=== PATIENT | male | born 1960 | race Caucasian/White ===

== ENCOUNTER 2021-01-11 16:24 | Outpatient (RCR) | payer OTHER, SELFPAY ==
[2021-01-11] MEDS: COVID-19 VACC, MRNA(PFIZER)/PF 30 MCG/0.3 ML SYRINGE IM (13:12)
[2021-02-01] MEDS: COVID-19 VACC, MRNA(PFIZER)/PF 30 MCG/0.3 ML SYRINGE IM (12:55)
== END 2021-01-11 23:59 ==
LOC: IMMUN 16:24
PROVIDERS: PCP Internal Medicine; Visit Provider Family Medicine
DX: Z23 Encounter for immunization (principal)
CPT/HCPCS: 0001A; 0002A; 91300

== ENCOUNTER → 2022-04-23 | Outpatient (CLI) | payer OTHER, SELFPAY ==
--- NOTE | 2022-04-23 07:35 | RAD_ITS ---
STUDY: X-RAY - LEFT TIBIA AND FIBULA REASON FOR EXAM: Male, 61 years old. Left lower leg contusion. TECHNIQUE: 2 view(s) of the tibia and fibula were obtained. COMPARISON: None. FINDINGS: Normal visualized tibia. Normal visualized fibula. The soft tissue structures are unremarkable. RAD/Tibia & Fibula 2 Views IMPRESSION: Normal x-ray examination of the tibia and fibula. Electronically Signed: Paxton Lee MD at 10:55 EDT ,
== END | disposition home or self-care (01) ==
LOC: RAD 07:19
PROVIDERS: PCP Internal Medicine; Referring Provider Chiropractor; Visit Provider Chiropractor
DX: S80.12XA Contusion of left lower leg, initial encounter (principal)
CPT/HCPCS: 73590

== ENCOUNTER → 2022-08-21 | Outpatient (CLI) | payer OTHER, SELFPAY ==
--- NOTE | 2022-08-21 07:47 | RAD_ITS ---
HISTORY: KNEE PAIN. TECHNIQUE: XR Knee 1 or 2 Views. COMPARISON: None. FINDINGS: BONES : No acute fracture identified. Mineralization unremarkable. JOINTS: No dislocation. Mild degenerative change. Moderate joint effusion. RAD/Knee 4 or More Views IMPRESSION: Moderate joint effusion in the right knee without acute fracture or dislocation identified. Electronically Signed: Anastasiya Lyman MD at 8:29 EDT ,
== END | disposition home or self-care (01) ==
PROVIDERS: PCP Internal Medicine; Referring Provider Chiropractor; Visit Provider Chiropractor
DX: M25.561 Pain in right knee (principal)
CPT/HCPCS: 73564

== ENCOUNTER → 2025-08-12 | Outpatient (CLI) | payer OTHER, SELFPAY ==
--- OUTSIDE RECORDS SUMMARY | 2025-08-12 13:41 | XMS RPT_ITS | CCD ---
Author Organization [facility] Care Team Providers Care Food Cart Attendant Name Role Phone Dalia Tristan Unavailable Joel Chang Unavailable Luna Payton Unavailable Unavailable Karishma Anderson Unavailable Andreia Guy Unavailable Unavailable Monika Shah Unavailable Unavailable Unavailable Unavailable Ag Wheeler Referring Unavailable Dalia Tristan Primary Care Unavailable Ag Wheeler Attending Unavailable Dalia Tristan Primary Care Unavailable Ag Wheeler Attending Unavailable Ag Wheeler Referring Unavailable Medications Completed/Discontinued Medications Medication Drug Class(es) Dates Sig (Normalized) Sig (Original) amoxicillin 875 mg / clavulanate 125 mg oral tablet (6 sources) Penicillin-class Antibacterial Start: 07-04-2017 End: 08-12-2017 take 1 tablet by mouth twice daily Augmentin 875-125 MG Oral Tablet 1 Tablet bid for 14 days Quantity: 28 {Tablet} Refills: 0 Ordered: 12-Aug-2017 Karishma Anderson CNP Start : 12-Aug-2017 Active NEGATED: Highlighted row has not occurred!drug or medication (3 sources) No Known Historical Medications Problems Active Problems Problem Classification Problem Date Documented Da te Episodic/Chronic Cardiac dysrhythmias (12 sources) Other premature beats; Translations: [Cardiac dysrhythmia, unspecified] 08-12-2017 Chronic Comment on above: sinus arrhythmia Cardiac dysrhythmias (18 sources) Palpitations; Translations: [Palpitations] 08-12-2017 Episodic Coronary atherosclerosis and other heart disease (20 sources) Coronary atherosclerosis and other heart disease Other gastrointestinal disorders (9 sources) Splenomegaly; Translations: [Splenomegaly] 08-12-2017 Episodic Other non-traumatic joint disorders (1 source) Pain in right knee; Translations: [Pain in right knee] Onset: 08-27-2022 Episodic Other nutritional; endocrine; and metabolic disorders (6 sources) Body mass index 25-29 - overweight; Translations: [BMI 28.0-28.9,adult] Resolved: 08-12-2017 10-09-2018 Chronic Other upper respiratory disease (6 sources) Congestion of nasal sinus; Translations: [Sinus congestion] Resolved: 07-04-2017 07-04-2017 Episodic Other upper respiratory infections (3 sources) Bacterial sinusitis; Translations: [Sinusitis, bacterial] 08-12-2017 Chronic Other upper respiratory infections (12 sources) Acute sinusitis, unspecified; Translations: [Acute sinusitis] 08-12-2017 Episodic Residual codes; unclassified (6 sources) FH: Diabetes mellitus; Translations: [Family history of diabetes mellitus] 08-12-2017 Episodic Residual codes; unclassified (3 sources) History of appendectomy; Translations: [Appendectomy] 08-12-2017 Episodic Unclassified (9 sources) Encounter for screening for malignant neoplasm of colon (Renamed from Special screening for malignant neoplasms, colon); Translations: [Screening status] 08-12-2017 Unclassified (20 sources) Unclassified (12 sources) Screening status; Translations: [Encounter for screening for malignant neoplasm of prostate (Renamed from Screening for prostate cancer)] 08-12-2017 Unclassified (9 sources) History of clinical finding in subject; Translations: [History of hyperglycemia] 08-26-2019 Unclassified (15 sources) Non-smoker; Translations: [Nonsmoker] 08-12-2017 Unclassified (3 sources) Screening for prostate cancer Unclassified (3 sources) BMI 28.0-28.9,adult Unclassified (3 sources) Sinusitis, bacterial Past or Other Problems Problem Classification Problem Date Documented Da te Episodic/Chronic Headache; including migraine (3 sources) Headache; Translations: [Headache] Resolved: 07-04-2017 07-04-2017 Episodic Superficial injury; contusion (1 source) Contusion of left lower leg, initial encounter; Translations: [Contusion of left lower leg, initial encounter] Onset: 04-25-2022 Episodic Unclassified (6 sources) Unspecified Diagnosis 08-12-2017 Unclassified (6 sources) Patient encounter status; Translations: [Encounter for screening colonoscopy] 12-11-2017 Unclassified (3 sources) PVC, OTHER PREMATURE BEATS (427.69) Unclassified (3 sources) ARRHYTHMIA, NOS (427.9) Unclassified (3 sources) BMI 27.0-27.9,adult Results Test Name Value Interpretation Reference Range Facility Knee 4 or More Viewson 08-21 Knee 4 or More Views [facility] Imaging Services [address] [place] [address] Knee 4 or More Views MR#: [id number] Acct: [id number] Name: AG WHEELER Jr. Rep #: [id number] : 1960 M 62 From: Anastasiya ross MD PCP: Dr. Dalia Tristan DO Status: REG CLI Study: Knee 4 or More Views Date of Exam: 08/21/22 Exam# [id number] Ordering Dr: Ag Wheeler D.C. HISTORY: KNEE PAIN. TECHNIQUE: XR Knee 1 or 2 Views. COMPARISON: None. FINDINGS: BONES : No acute fracture identified. Mineralization unremarkable. JOINTS: No dislocation. Mild degenerative change. Moderate joint effusion. RAD/Knee 4 or More Views IMPRESSION: Moderate joint effusion in the right knee without acute fracture or dislocation identified. Electronically Signed: Anastasiya Lyman MD at 8:29 EDT Reading Location ID and State: [address] [place] [address] Tel , Service support , CC: GABRIELLA Wheeler; Dr. Dalia Tristan DO Linen Room Worker: Signed Normal [facility] Tibia Fibula 2 Viewson 04-23 Tibia Fibula 2 Views [facility] Imaging Services [address] [place] [address] Tibia Fibula 2 Views MR#: [id number] Acct: [id number] Name: AG WHEELER Jr. Rep #: [id number] : 1960 M 61 From: Paxton Lee MD PCP: Dr. Dalia Tristan DO Status: REG CLI Study: Tibia Fibula 2 Views Date of Exam: 04/23/22 Exam# [id number] Ordering Dr: Ag Wheeler D.C. STUDY: X-RAY - LEFT TIBIA AND FIBULA REASON FOR EXAM: Male, 61 years old. Left lower leg contusion. TECHNIQUE: 2 view(s) of the tibia and fibula were obtained. COMPARISON: None. FINDINGS: Normal visualized tibia. Normal visualized fibula. The soft tissue structures are unremarkable. RAD/Tibia Fibula 2 Views IMPRESSION: Normal x-ray examination of the tibia and fibula. Electronically Signed: Paxton Lee MD at 10:55 EDT , CC: DC Dr. Ag Wheeler; Dr. Dalia Tristan DO Linen Room Worker: Signed Normal [facility] CBC with auto diff ([id number])Or dered By: Cable Tender on 07-04-2017 Basophils (Bld) [#/Vol] 0.1 {x10E3/uL} Normal 0.0-0.2 [facility] Work Phone: Comment on above: PATIENT WAS FASTINGP ERFORMED BY: SocialOptimizr6370 [facility] [id number] Basophils/100 WBC (Bld) 1 % Normal [facility] Work Phone: Comment on above: PATIENT WAS FASTINGP ERFORMED BY: SocialOptimizr6370 [facility] [id number] Eosinophils (Bld) [#/Vol] 0.4 {x10E3/uL} Normal 0.0-0.4 [facility] Work Phone: Comment on above: PATIENT WAS FASTINGP ERFORMED BY: Xipin70 [facility] [id number] Eosinophils/100 WBC (Bld) 7 % Normal [facility] Work Phone: Comment on above: PATIENT WAS FASTINGP ERFORMED BY: [facility] Ezqbiq1422 [facility] [id number] Erythrocyte distribution width (RBC) [Ratio] 14.3 % Normal 12.3-15.4 [facility] Work Phone: Comment on above: PATIENT WAS FASTINGP ERFORMED BY: [facility]Asc[facility]6370 [facility] [id number] Hematocrit (Bld) [Volume fraction] 46.2 % Normal 37.5-51.0 [facility] Work Phone: Comment on above: PATIENT WAS FASTINGP ERFORMED BY: [place] 5195470 [facility] [id number] Hemoglobin (Bld) [Mass/Vol] 15.7 g/dL Normal 12.6-17.7 [facility] Work Phone: Comment on above: PATIENT WAS FASTINGP ERFORMED BY: [facility]6370 [facility] [id number] Immature granulocytes (Bld) [#/Vol] 0.0 {x10E3/uL} Normal 0.0-0.1 [facility] Work Phone: Comment on above: PATIENT WAS FASTINGP ERFORMED BY: [facility]6370 [facility] [id number] Immature granulocytes/100 WBC (Bld) 0 % Normal [facility] Work Phone: Comment on above: PATIENT WAS FASTINGP ERFORMED BY: LabAsc[facility] [facility] [id number] Lymphocytes (Bld) [#/Vol] 1.2 {x10E3/uL} Normal 0.7-3.1 [facility] Work Phone: Comment on above: PATIENT WAS FASTINGP ERFORMED BY: [facility]Asc[facility] [facility] [id number] Lymphocytes/100 WBC (Bld) 20 % Normal [facility] Work Phone: Comment on above: PATIENT WAS FASTINGP ERFORMED BY: DEBO LabCo Lhdtef3383 [address]rera RoadDublin [place] [id number] MCH (RBC) [Entitic mass] 28.8 pg Normal 26.6-33.0 [facility] Work Phone: Comment on above: PATIENT WAS FASTINGP ERFORMED BY: LabCoAcoma-Canoncito-Laguna HospitalStcmym2226 [address] Roadblin [place] [id number] MCHC (RBC) [Mass/Vol] 34.0 g/dL Normal 31.5-35.7 [facility] Work Phone: Comment on above: PATIENT WAS FASTINGP ERFORMED BY: Lab[facility] Wzrpee0446 [address] RoadDublin [place] [id number] MCV (RBC) [Entitic vol] 85 fL Normal 79-97 [facility] Work Phone: Comment on above: PATIENT WAS FASTINGP ERFORMED BY: Lab[facility] Gtnmpf7358 [address] Roadblin [place] [id number] Monocytes (Bld) [#/Vol] 0.6 {x10E3/uL} Normal 0.1-0.9 [facility] Work Phone: Comment on above: PATIENT WAS FASTINGP ERFORMED BY: [facility] Onhluc0396 [address] RoadDublin [place] [id number] Monocytes/100 WBC (Bld) 10 % Normal [facility] Work Phone: Comment on above: PATIENT WAS FASTINGP ERFORMED BY: Lab[facility] Ulaugr2963 [address] RoadDublin [place] [id number] Neutrophils (Bld) [#/Vol] 3.9 {x10E3/uL} Normal 1.4-7.0 [facility] Work Phone: Comment on above: PATIENT WAS FASTINGP ERFORMED BY: LabCo Crqbui1742 [address] RoadDublin [place] [id number] Neutrophils/100 WBC (Bld) 62 % Normal [facility] Work Phone: Comment on above: PATIENT WAS FASTINGP ERFORMED BY: DEBO LabCo Mklaiy2310 [address] Roadblin [place] [id number] Platelets (Bld) [#/Vol] 222 {x10E3/uL} Normal 150-379 [facility] Work Phone: Comment on above: PATIENT WAS FASTINGP ERFORMED BY: DEBO LabCo Ezcyfx[address] [facility] [place] [id number] RBC (Bld) [#/Vol] 5.45 {x10E6/uL} Normal 4.14-5.80 [facility] Work Phone: Comment on above: PATIENT WAS FASTINGP ERFORMED BY: DEBO LabIssa Bnqwww[address] [facility]in [place] [id number] WBC (Bld) [#/Vol] 6.2 {x10E3/uL} Normal 3.4-10.8 [facility] Work Phone: Comment on above: PATIENT WAS FASTINGP ERFORMED BY: DEBO LabTwo [facility] Jhnydo0665 [facility]in [place] [id number] HGB A1C ([id number])Ordered By: S ystem Study Director on 07-04-2017 HbA1c (Bld) [Mass fraction] 5.6 % Normal 4.8-5.6 [facility] Work Phone: Comment on above: . Pre-diabetes: 5.7 - 6.4 Diabetes: >6.4 Glycemic control for adults with diabetes: <7.0 PATIENT WAS FASTINGP ERFORMED BY: DEBO LabCo Nuthys1234 [facility] [id number] LIPID PANEL ([id number])Ordered B y: Cable Tender on 07-04-2017 Cholesterol [Mass/Vol] 188 mg/dL Normal 100-199 [facility] Work Phone: Comment on above: PATIENT WAS FASTINGP ERFORMED BY: DEBO LabCo Snkcwu[address] [facility] [place] [id number] Cholesterol in HDL [Mass/Vol] 74 mg/dL Normal [facility] Work Phone: Comment on above: PATIENT WAS FASTINGP ERFORMED BY: DEBO LabRenetta LynnYjdaff0692 [address] RoadDublin [place] [id number] Cholesterol in LDL [Mass/Vol] 96 mg/dL Normal 0-99 [facility] Work Phone: Comment on above: PATIENT WAS FASTINGP ERFORMED BY: DEBO LabRenetta LynnIvstsk1251 [address] RoadDublin [place] [id number] Cholesterol in LDL/Cholesterol in HDL [Mass ratio] 1.3 {ratio_units} Normal 0.0-3.6 [facility] Work Phone: Comment on above: LDL/HDL Ratio Men Wo men 1/2 Avg.Risk 1.0 1.5 Avg.Risk 3.6 3.2 2X Avg.Risk 6.2 5.0 3X Avg.Risk 8.0 6.1 PATIENT WAS FASTINGP ERFORMED BY: DEBO LabCoiam LynnNxsjok[address] [facility]in [place] [id number] Cholesterol in VLDL [Mass/Vol] 18 mg/dL Normal 5-40 [facility] Work Phone: Comment on above: PATIENT WAS FASTINGP ERFORMED BY: DEBO LabCoiam LynnCjdjxu5693 [address] Roadblin [place] [id number] Triglyceride [Mass/Vol] 89 mg/dL Normal 0-149 [facility] Work Phone: Comment on above: PATIENT WAS FASTINGP ERFORMED BY: DEBO LabRenetta LynnHdkksn[address] [facility] Hospitalbl[facility] [place] [id number] METABOLIC PANEL, COMPREHENSI VE ([id number])Ordered By: Cable Tender on 07-04-2017 Albumin [Mass/Vol] 4.0 g/dL Normal 3.5-5.5 [facility] Work Phone: Comment on above: PATIENT WAS FASTINGP ERFORMED BY: DEBO LabCoiam Wuqzus8246 [address] RoadDublin [place] [id number] Albumin/Globulin [Mass ratio] 1.6 {ratio} Normal 1.2-2.2 [facility] Work Phone: Comment on above: PATIENT WAS FASTINGP ERFORMED BY: DEBO [facility] Obzqyh5485 [address] RoadDublin [place] [id number] ALP [Catalytic activity/Vol] 80 [iU]/L Normal 39-117 [facility] Work Phone: Comment on above: PATIENT WAS FASTINGP ERFORMED BY: [facility] Boxnfd6036 [address] RoadDublin [place] [id number] ALT [Catalytic activity/Vol] 28 [iU]/L Normal 0-44 [facility] Work Phone: Comment on above: PATIENT WAS FASTINGP ERFORMED BY: LabCo Udzxbf0349 [address] RoadDublin [place] [id number] AST [Catalytic activity/Vol] 27 [iU]/L Normal 0-40 [facility] Work Phone: Comment on above: PATIENT WAS FASTINGP ERFORMED BY: [facility] Airrfa1637 [address] RoadDublin [place] [id number] Bilirubin [Mass/Vol] 1.6 mg/dL Abnormal 0.0-1.2 [facility] Work Phone: Comment on above: PATIENT WAS FASTINGP ERFORMED BY: LabCo Bzcgzd6020 [address] RoadDublin [place] [id number] Calcium [Mass/Vol] 9.4 mg/dL Normal 8.7-10.2 [facility] Work Phone: Comment on above: PATIENT WAS FASTINGP ERFORMED BY: [facility] Zzjnxa5312 [address] RoadDublin [place] [id number] Chloride [Moles/Vol] 103 mmol/L Normal 96-106 [facility] Work Phone: Comment on above: PATIENT WAS FASTINGP ERFORMED BY: [facility] Wouokv3643 [address] RoadDublin [place] [id number] CO2 [Moles/Vol] 25 mmol/L Normal 18-29 [facility] Work Phone: Comment on above: PATIENT WAS FASTINGP ERFORMED BY: [facility] Cmurnw7178 [address] RoadDublin [place] [id number] Creatinine [Mass/Vol] 1.09 mg/dL Normal 0.76-1.27 [facility] Work Phone: Comment on above: PATIENT WAS FASTINGP ERFORMED BY: [facility] Rvpozr1681 [address] RoadDublin [place] [id number] GFR/1.73 sq M predicted among blacks CKD-EPI (S/P/Bld) [Vol rate/Area] 88 mL/min/1.73 Normal [facility] Work Phone: Comment on above: PATIENT WAS FASTINGP ERFORMED BY: CB [facility] Yttjgn9262 [address] RoadDublin [place] [id number] GFR/1.73 sq M predicted among non-blacks CKD-EPI (S/P/Bld) [Vol rate/Area] 76 mL/min/1.73 Normal [facility] Work Phone: Comment on above: PATIENT WAS FASTINGP ERFORMED BY: [facility] Nrbhkr2539 [address] RoadDublin [place] [id number] Globulin (S) [Mass/Vol] 2.5 g/dL Normal 1.5-4.5 [facility] Work Phone: Comment on above: PATIENT WAS FASTINGP ERFORMED BY: [facility] Jpilbn4024 [address] RoadDublin [place] [id number] Glucose [Mass/Vol] 89 mg/dL Normal 65-99 [facility] Work Phone: Comment on above: PATIENT WAS FASTINGP ERFORMED BY: [facility] Dtvvlw[address] [facility]bl[facility] [place] [id number] Potassium [Moles/Vol] 5.1 mmol/L Normal 3.5-5.2 [facility] Work Phone: Comment on above: PATIENT WAS FASTINGP ERFORMED BY: [facility] Ehhyst9217 [address] RoadDublin [place] [id number] Protein [Mass/Vol] 6.5 g/dL Normal 6.0-8.5 [facility] Work Phone: Comment on above: PATIENT WAS FASTINGP ERFORMED BY: [facility] Igijsd5082 [address] RoadDublin [place] [id number] Sodium [Moles/Vol] 143 mmol/L Normal 134-144 [facility] Work Phone: Comment on above: PATIENT WAS FASTINGP ERFORMED BY: Posiba6370 [facility] [id number] Urea nitrogen [Mass/Vol] 11 mg/dL Normal 6-24 [facility] Work Phone: Comment on above: PATIENT WAS FASTINGP ERFORMED BY: Posiba[address] [employer] [facility]American [facility] [id number] Urea nitrogen/Creatini ne [Mass ratio] 10 mg/mg Normal 9-20 [facility] Work Phone: Comment on above: PATIENT WAS FASTINGP ERFORMED BY: [employer] I Ielmmd2255 HerreraTagLabsWatauga Medical Center [id number] PSA (PROSTATE SPECIFIC ANTIG EN) (V76.44)Ordered By: Cable Tender on 07-04-2017 Prostate specific Ag [Mass/Vol] 1.5 ng/mL Normal 0.0-4.0 [facility] Work Phone: Comment on above: [employer] ECLIA methodol ogy. .According to the [place] [employer], Serum PSA shoulddecrease and remain at undetectable levels after radicalprostatectomy. The AUA defines biochemical recurrence as an initialPSA value 0.2 ng/mL or greater followed by a subsequent confirmatoryPSA value 0.2 ng/mL or greater.Values obtained with different assay methods or kits cannot be usedinterchangeably. Results cannot be interpreted as absolute evidenceof the presence or absence of malignant disease. PATIENT WAS FASTINGP ERFORMED BY: Posiba[address] Klee Data SystemWatauga Medical Center [id number] TSH ([id number])Ordered By: Syste m Study Director on 07-04-2017 TSH Qn 2.820 {uIU/mL} Normal 0.450-4.500 [facility] Work Phone: Comment on above: PATIENT WAS FASTINGP ERFORMED BY: SocialOptimizr6370 BioArrayWatauga Medical Center [id number] CBC W/AUTO DIFF WBC ([id number])O rdered By: Cable Tender on 05-02-2016 Basophils (Bld) [#/Vol] 0.1 {x10E3/uL} Normal 0.0-0.2 [facility] Work Phone: Comment on above: PATIENT WAS FASTINGP ERFORMED BY: CandelariaJoshua V[place] 9600970 [facility] [id number] Information: [id number] Basophils/100 WBC (Bld) 1 % Normal [facility] Work Phone: Comment on above: PATIENT WAS FASTINGP ERFORMED BY: [address] [id number] Information: [id number] Eosinophils (Bld) [#/Vol] 0.3 {x10E3/uL} Normal 0.0-0.4 [facility] Work Phone: Comment on above: PATIENT WAS FASTINGP ERFORMED BY: [address] [id number] Information: [id number] Eosinophils/100 WBC (Bld) 4 % Normal [facility] Work Phone: Comment on above: PATIENT WAS FASTINGP ERFORMED BY: [address] [id number] Information: [id number] Erythrocyte distribution width (RBC) [Ratio] 14.3 % Normal 12.3-15.4 [facility] Work Phone: Comment on above: PATIENT WAS FASTINGP ERFORMED BY: [address] [id number] Information: [id number] Hematocrit (Bld) [Volume fraction] 46.7 % Normal 37.5-51.0 [facility] Work Phone: Comment on above: PATIENT WAS FASTINGP ERFORMED BY: [address] [id number] Information: [id number] Hemoglobin (Bld) [Mass/Vol] 15.7 g/dL Normal 12.6-17.7 [facility] Work Phone: Comment on above: PATIENT WAS FASTINGP ERFORMED BY: [place] 5195470 [facility] [id number] Information: [id number] Immature granulocytes (Bld) [#/Vol] 0.0 {x10E3/uL} Normal 0.0-0.1 [facility] Work Phone: Comment on above: PATIENT WAS FASTINGP ERFORMED BY: [address] [id number] Information: [id number] Immature granulocytes/100 WBC (Bld) 0 % Normal [facility] Work Phone: Comment on above: PATIENT WAS FASTINGP ERFORMED BY: [address] [id number] Information: [id number],[id number] Lymphocytes (Bld) [#/Vol] 1.1 {x10E3/uL} Normal 0.7-3.1 [facility] Work Phone: Comment on above: PATIENT WAS FASTINGP ERFORMED BY: [address] [id number] Information: [id number] Lymphocytes/100 WBC (Bld) 19 % Normal [facility] Work Phone: Comment on above: PATIENT WAS FASTINGP ERFORMED BY: [address] [id number] Information: [id number] MCH (RBC) [Entitic mass] 28.8 pg Normal 26.6-33.0 [facility] Work Phone: Comment on above: PATIENT WAS FASTINGP ERFORMED BY: [address] [id number] Information: [id number] MCHC (RBC) [Mass/Vol] 33.6 g/dL Normal 31.5-35.7 [facility] Work Phone: Comment on above: PATIENT WAS FASTINGP ERFORMED BY: DEBO CandelariaTwo [facility] Psychiatric Hospital Synnqz2698 [facility] [id number] Information: [id number] MCV (RBC) [Entitic vol] 86 fL Normal 79-97 [facility] Work Phone: Comment on above: PATIENT WAS FASTINGP ERFORMED BY: [address] [id number] Information: [id number] Monocytes (Bld) [#/Vol] 0.6 {x10E3/uL} Normal 0.1-0.9 [facility] Work Phone: Comment on above: PATIENT WAS FASTINGP ERFORMED BY: DEBO [address] [id number] Information: [id number] Monocytes/100 WBC (Bld) 10 % Normal [facility] Work Phone: Comment on above: PATIENT WAS FASTINGP ERFORMED BY: [facility] Ypkghb6374 [facility] [id number] Information: [id number] Neutrophils (Bld) [#/Vol] 4.0 {x10E3/uL} Normal 1.4-7.0 [facility] Work Phone: Comment on above: PATIENT WAS FASTINGP ERFORMED BY: [place] 5195470 [facility] [id number] Information: [id number],[id number] Neutrophils/100 WBC (Bld) 66 % Normal [facility] Work Phone: Comment on above: PATIENT WAS FASTINGP ERFORMED BY: [facility]6370 [facility] [id number] Information: [id number] Platelets (Bld) [#/Vol] 208 {x10E3/uL} Normal 150-379 [facility] Work Phone: Comment on above: PATIENT WAS FASTINGP ERFORMED BY: DEBO Chely Bhakta6370 [facility] [id number] Information: [id number] RBC (Bld) [#/Vol] 5.46 {x10E6/uL} Normal 4.14-5.80 [facility] Internal Medicine Work Phone: Comment on above: PATIENT WAS FASTINGP ERFORMED BY: DEBO Chely Bhakta6370 [facility] [id number] Information: [id number] WBC (Bld) [#/Vol] 6.0 {x10E3/uL} Normal 3.4-10.8 [facility] Internal [facility] Work Phone: Comment on above: PATIENT WAS FASTINGP ERFORMED BY: DEBO Katieiam Prjzat6803 [facility] [id number] Information: [id number] HGB A1C (94067)on 05-02-2016 HbA1c (Bld) [Mass fraction] 5.6 % Normal 4.6 - 7.1 [facility] Work Phone: LIPID PANEL (32853)Ordered B y: Cable Tender on 05-02-2016 Cholesterol [Mass/Vol] 170 mg/dL Normal 100-199 [facility] Work Phone: Comment on above: PATIENT WAS FASTINGP ERFORMED BY: DEBO Katieiam LynnLrpkit4460 [facility] [id number] Cholesterol in HDL [Mass/Vol] 68 mg/dL Normal [facility] Work Phone: Comment on above: According to ATP-III Guidelines, HDL-C >59 mg/dL is considered anegative risk factor for CHD. PATIENT WAS FASTINGP ERFORMED BY: DEBO LabCoiam LynnBxosmf4596 [facility] [id number] Cholesterol in LDL [Mass/Vol] 88 mg/dL Normal 0-99 [facility] Work Phone: Comment on above: PATIENT WAS FASTINGP ERFORMED BY: DEBO LabCo Ahsvbq6553 [facility] [id number] Cholesterol in LDL/Cholesterol in HDL [Mass ratio] 1.3 {ratio_units} Normal 0.0-3.6 [facility] Work Phone: Comment on above: LDL/HDL Ratio Men Wo men 1/2 Avg.Risk 1.0 1.5 Avg.Risk 3.6 3.2 2X Avg.Risk 6.2 5.0 3X Avg.Risk 8.0 6.1 PATIENT WAS FASTINGP ERFORMED BY: DEBO LabCo Cidgnd1022 [facility] [id number] Cholesterol in VLDL [Mass/Vol] 14 mg/dL Normal 5-40 [facility] Work Phone: Comment on above: PATIENT WAS FASTINGP ERFORMED BY: DEBO LabCoMatheny Medical and Educational CenterCdjzqq6899 [facility] [id number] Triglyceride [Mass/Vol] 70 mg/dL Normal 0-149 [facility] Work Phone: Comment on above: PATIENT WAS FASTINGP ERFORMED BY: DEBO LabCo Daapjg7291 [facility] [id number] METABOLIC PANEL, COMPREHENSI VE ([id number])Ordered By: Cable Tender on 05-02-2016 Albumin [Mass/Vol] 4.3 g/dL Normal 3.5-5.5 [facility] Work Phone: Comment on above: PATIENT WAS FASTINGP ERFORMED BY: LabCo Wluqwl4219 [facility] [id number] Albumin/Globulin [Mass ratio] 2.0 {ratio} Normal 1.1-2.5 [facility] Work Phone: Comment on above: PATIENT WAS FASTINGP ERFORMED BY: [facility] Jejwlb7656 [facility] [id number] ALP [Catalytic activity/Vol] 79 [iU]/L Normal 39-117 [facility] Work Phone: Comment on above: PATIENT WAS FASTINGP ERFORMED BY: LabCo Zpqyre2207 [facility] [id number] ALT [Catalytic activity/Vol] 25 [iU]/L Normal 0-44 [facility] Work Phone: Comment on above: PATIENT WAS FASTINGP ERFORMED BY: [facility] Vacymk[address] [facility] [place] [id number] AST [Catalytic activity/Vol] 24 [iU]/L Normal 0-40 [facility] Work Phone: Comment on above: PATIENT WAS FASTINGP ERFORMED BY: [facility] Nkpxls1317 [address] RoadAmerican Healthcare Systemsin [place] [id number] Bilirubin [Mass/Vol] 2.4 mg/dL Abnormal 0.0-1.2 [facility] Work Phone: Comment on above: PATIENT WAS FASTINGP ERFORMED BY: [facility]Asc[facility] [facility]in [place] [id number] Calcium [Mass/Vol] 9.2 mg/dL Normal 8.7-10.2 [facility] Work Phone: Comment on above: PATIENT WAS FASTINGP ERFORMED BY: [facility] [facility] [id number] Chloride [Moles/Vol] 100 mmol/L Normal 97-108 [facility] Work Phone: Comment on above: PATIENT WAS FASTINGP ERFORMED BY: [facility]Asc[facility] [facility]in [place] [id number] CO2 [Moles/Vol] 25 mmol/L Normal 18-29 [facility] Work Phone: Comment on above: PATIENT WAS FASTINGP ERFORMED BY: [facility]Asc[facility] [facility]in [place] [id number] Creatinine [Mass/Vol] 1.13 mg/dL Normal 0.76-1.27 [facility] Work Phone: Comment on above: PATIENT WAS FASTINGP ERFORMED BY: [facility] Trljgw4849 [address] [facility]in [place] [id number] GFR/1.73 sq M predicted among blacks CKD-EPI (S/P/Bld) [Vol rate/Area] 85 mL/min/1.73 Normal [facility] Work Phone: Comment on above: PATIENT WAS FASTINGP ERFORMED BY: DEBO [facility] Pacmre4449 [address] RoadDublin [place] [id number] GFR/1.73 sq M predicted among non-blacks CKD-EPI (S/P/Bld) [Vol rate/Area] 74 mL/min/1.73 Normal [facility] Work Phone: Comment on above: PATIENT WAS FASTINGP ERFORMED BY: DEBO [facility] Qsxfcd2913 [address] RoadDublin [place] [id number] Globulin (S) [Mass/Vol] 2.1 g/dL Normal 1.5-4.5 [facility] Work Phone: Comment on above: PATIENT WAS FASTINGP ERFORMED BY: DEBO [facility] Aimlux8963 [address] RoadDublin [place] [id number] Glucose [Mass/Vol] 87 mg/dL Normal 65-99 [facility] Work Phone: Comment on above: PATIENT WAS FASTINGP ERFORMED BY: LabCo Cstnrq7702 [address] RoadDublin [place] [id number] Potassium [Moles/Vol] 4.9 mmol/L Normal 3.5-5.2 [facility] Work Phone: Comment on above: PATIENT WAS FASTINGP ERFORMED BY: [facility] Upfzsl7558 [address] RoadDublin [place] [id number] Protein [Mass/Vol] 6.4 g/dL Normal 6.0-8.5 [facility] Work Phone: Comment on above: PATIENT WAS FASTINGP ERFORMED BY: [facility] Iyggas3461 [address] RoadDublin [place] [id number] Sodium [Moles/Vol] 141 mmol/L Normal 134-144 [facility] Work Phone: Comment on above: PATIENT WAS FASTINGP ERFORMED BY: [facility] Wkkidn0439 [address] RoadDublin [place] [id number] Urea nitrogen [Mass/Vol] 11 mg/dL Normal 6-24 [facility] Work Phone: Comment on above: PATIENT WAS FASTINGP ERFORMED BY: Pos[facility]6370 [employer]in [place] [id number] Urea nitrogen/Creatini ne [Mass ratio] 10 mg/mg Normal 9-20 [facility] Work Phone: Comment on above: PATIENT WAS FASTINGP ERFORMED BY: Posiba6370 HerreraTagLabsAmerican Healthcare Systemsin [place] [id number] PSA (PROSTATE SPECIFIC ANTIG EN) (V76.44)Ordered By: Cable Tender on 05-02-2016 Prostate specific Ag [Mass/Vol] 1.3 ng/mL Normal 0.0-4.0 [facility] Work Phone: Comment on above: [employer] ECLIA methodol ogy. .According to the [place] [employer], Serum PSA shoulddecrease and remain at undetectable levels after radicalprostatectomy. The AUA defines biochemical recurrence as an initialPSA value 0.2 ng/mL or greater followed by a subsequent confirmatoryPSA value 0.2 ng/mL or greater.Values obtained with different assay methods or kits cannot be usedinterchangeably. Results cannot be interpreted as absolute evidenceof the presence or absence of malignant disease. PATIENT WAS FASTINGP ERFORMED BY: Posiba6370 [facility] InsightsAmerican Healthcare Systems [id number] TSH ([id number])Ordered By: cafegive m Study Director on 05-02-2016 TSH Qn 2.610 {uIU/mL} Normal 0.450-4.500 [facility] Internal Medicine Work Phone: Comment on above: PATIENT WAS FASTINGP ERFORMED BY: SocialOptimizr[address] [facility]lee Data SystemWatauga Medical Center [id number] CBC WITH MANUAL DIFF ([id number]) Ordered By: Cable Tender on 07-29-2012 Basophils (Bld) [#/Vol] 0.0 {x10E3/uL} Normal 0.0-0.2 [facility] Internal Medicine Work Phone: Comment on above: PATIENT NOT FASTINGP ERFORMED BY: SocialOpt[employer]r[address] Klee Data SystemWatauga Medical Center [id number] Basophils/100 WBC (Bld) 1 % Normal 0-3 [facility] Work Phone: Comment on above: PATIENT NOT FASTINGP ERFORMED BY: CB [facility] Mzsfrf1077 [address] RoadDublin [place] [id number] Eosinophils (Bld) [#/Vol] 0.2 {x10E3/uL} Normal 0.0-0.4 [facility] Work Phone: Comment on above: PATIENT NOT FASTINGP ERFORMED BY: CB [facility] Btxkzm7787 [address] RoadDublin [place] [id number] Eosinophils/100 WBC (Bld) 3 % Normal 0-7 [facility] Work Phone: Comment on above: PATIENT NOT FASTINGP ERFORMED BY: CB [facility] Ddujvx4298 [address] RoadDublin [place] [id number] Erythrocyte distribution width (RBC) [Ratio] 14.2 % Normal 12.3-15.4 [facility] Work Phone: Comment on above: PATIENT NOT FASTINGP ERFORMED BY: CB [facility] Acqvkr9587 [address] RoadDublin [place] [id number] Hematocrit (Bld) [Volume fraction] 44.3 % Normal 37.5-51.0 [facility] Work Phone: Comment on above: PATIENT NOT FASTINGP ERFORMED BY: CB [facility] Pqmqer6050 [address] RoadDublin [place] [id number] Hemoglobin (Bld) [Mass/Vol] 15.5 g/dL Normal 12.6-17.7 [facility] Work Phone: Comment on above: PATIENT NOT FASTINGP ERFORMED BY: CB [facility] Qtmrcc1276 [address] RoadDublin [place] [id number] Immature granulocytes (Bld) [#/Vol] 0.0 {x10E3/uL} Normal 0.0-0.1 [facility] Work Phone: Comment on above: PATIENT NOT FASTINGP ERFORMED BY: CB [facility] Cisjjm9089 [address] RoadDublin [place] [id number] Immature granulocytes/100 WBC (Bld) 0 % Normal 0-2 [facility] Work Phone: Comment on above: PATIENT NOT FASTINGP ERFORMED BY: CB [facility] Xafldi6421 [address] RoadDublin [place] [id number] Lymphocytes (Bld) [#/Vol] 1.1 {x10E3/uL} Normal 0.7-4.5 [facility] Work Phone: Comment on above: PATIENT NOT FASTINGP ERFORMED BY: CB [facility] Yxfeff8064 [address] RoadDublin [place] [id number] Lymphocytes/100 WBC (Bld) 16 % Normal 14-46 [facility] Work Phone: Comment on above: PATIENT NOT FASTINGP ERFORMED BY: CB [facility] Xyunqg9371 [address] RoadAmerican Healthcare Systemsin [place] [id number] MCH (RBC) [Entitic mass] 29.5 pg Normal 26.6-33.0 [facility] Work Phone: Comment on above: PATIENT NOT FASTINGP ERFORMED BY: CB [facility] Riohxg6847 [address] RoadAmerican Healthcare Systemsin [place] [id number] MCHC (RBC) [Mass/Vol] 35.0 g/dL Normal 31.5-35.7 [facility] Work Phone: Comment on above: PATIENT NOT FASTINGP ERFORMED BY: CB [facility] Melivq9[address] [facility] HospitalDublin [place] [id number] MCV (RBC) [Entitic vol] 84 fL Normal 79-97 [facility] Work Phone: Comment on above: PATIENT NOT FASTINGP ERFORMED BY: CB [facility] Ijefel1530 [address] RoadAmerican Healthcare Systemsin [place] [id number] Monocytes (Bld) [#/Vol] 0.5 {x10E3/uL} Normal 0.1-1.0 [facility] Work Phone: Comment on above: PATIENT NOT FASTINGP ERFORMED BY: CB [facility] Ormckp0301 [address] RoadDublin [place] [id number] Monocytes/100 WBC (Bld) 8 % Normal 4-13 [facility] Work Phone: Comment on above: PATIENT NOT FASTINGP ERFORMED BY: CB [facility] Rmpvdx8816 [address] RoadDublin [place] [id number] Neutrophils (Bld) [#/Vol] 4.7 {x10E3/uL} Normal 1.8-7.8 [facility] Work Phone: Comment on above: PATIENT NOT FASTINGP ERFORMED BY: CB [facility] Ohpmlm4886 [address] RoadDublin [place] [id number] Neutrophils/100 WBC (Bld) 72 % Normal 40-74 [facility] Work Phone: Comment on above: PATIENT NOT FASTINGP ERFORMED BY: CB [facility] Asgiqx2616 [address] RoadDublin [place] [id number] Platelets (Bld) [#/Vol] 237 {x10E3/uL} Normal 140-415 [facility] Work Phone: Comment on above: PATIENT NOT FASTINGP ERFORMED BY: CB [facility] Ukrlim9980 [address] RoadDublin [place] [id number] RBC (Bld) [#/Vol] 5.25 {x10E6/uL} Normal 4.14-5.80 [facility] Internal Medicine Work Phone: Comment on above: PATIENT NOT FASTINGP ERFORMED BY: CB [facility] Cgcjtx9958 [address] RoadDublin [place] [id number] WBC (Bld) [#/Vol] 6.6 {x10E3/uL} Normal 4.0-10.5 [facility] Internal Medicine Work Phone: Comment on above: PATIENT NOT FASTINGP ERFORMED BY: CB [facility] Goozet3933 [address] RoadDublin [place] [id number] METABOLIC PANEL, COMPREHENSI VE ([id number])Ordered By: Cable Tender on 07-29-2012 Albumin [Mass/Vol] 4.5 g/dL Normal 3.5-5.5 [facility] Internal Medicine Work Phone: Comment on above: PATIENT NOT FASTINGP ERFORMED BY: CB [facility] Wdvewv2399 [address] RoadDublin [place] [id number] Albumin/Globulin [Mass ratio] 2.1 {ratio} Normal 1.1-2.5 [facility] Work Phone: Comment on above: PATIENT NOT FASTINGP ERFORMED BY: CB [facility] Ncyywt5626 [address] RoadDublin [place] [id number] ALP [Catalytic activity/Vol] 79 [iU]/L Normal 25-150 [facility] Work Phone: Comment on above: PATIENT NOT FASTINGP ERFORMED BY: CB [facility] Bjuqqd5079 [address] RoadDublin [place] [id number] ALT [Catalytic activity/Vol] 23 [iU]/L Normal 0-55 [facility] Work Phone: Comment on above: PATIENT NOT FASTINGP ERFORMED BY: CB [facility] Vedhud9651 [address] RoadDublin [place] [id number] AST [Catalytic activity/Vol] 23 [iU]/L Normal 0-40 [facility] Work Phone: Comment on above: PATIENT NOT FASTINGP ERFORMED BY: CB [facility] Fyidhz1566 [address] RoadDublin [place] [id number] Bilirubin [Mass/Vol] 1.5 mg/dL Abnormal 0.0-1.2 [facility] Work Phone: Comment on above: PATIENT NOT FASTINGP ERFORMED BY: CB [facility] Vdoazw8373 [address] RoadDublin [place] [id number] Calcium [Mass/Vol] 9.5 mg/dL Normal 8.7-10.2 [facility] Work Phone: Comment on above: PATIENT NOT FASTINGP ERFORMED BY: CB [facility] Wisuhl9523 [address] RoadDublin [place] [id number] Chloride [Moles/Vol] 100 mmol/L Normal 97-108 [facility] Work Phone: Comment on above: PATIENT NOT FASTINGP ERFORMED BY: CB [facility] Uctnch4091 [address] RoadDublin [place] [id number] CO2 [Moles/Vol] 24 mmol/L Normal 20-32 [facility] Internal Medicine Work Phone: Comment on above: PATIENT NOT FASTINGP ERFORMED BY: CB [facility] Umllcy1286 [address] RoadDublin [place] [id number] Creatinine [Mass/Vol] 1.11 mg/dL Normal 0.76-1.27 [facility] Work Phone: Comment on above: PATIENT NOT FASTINGP ERFORMED BY: CB [facility] Vtfepl2026 [address] RoadDublin [place] [id number] GFR/1.73 sq M predicted among blacks CKD-EPI (S/P/Bld) [Vol rate/Area] 89 mL/min/1.73 Normal [facility] Work Phone: Comment on above: PATIENT NOT FASTINGP ERFORMED BY: CB [facility] Iorvch7373 [address] RoadDublin [place] [id number] GFR/1.73 sq M predicted among non-blacks CKD-EPI (S/P/Bld) [Vol rate/Area] 77 mL/min/1.73 Normal [facility] Work Phone: Comment on above: PATIENT NOT FASTINGP ERFORMED BY: CB [facility] Uzedwy6351 [address] RoadDublin [place] [id number] Globulin (S) [Mass/Vol] 2.1 g/dL Normal 1.5-4.5 [facility] Work Phone: Comment on above: PATIENT NOT FASTINGP ERFORMED BY: CB [facility] Ojfhwn7690 [address] RoadDublin [place] [id number] Glucose [Mass/Vol] 85 mg/dL Normal 65-99 [facility] Work Phone: Comment on above: PATIENT NOT FASTINGP ERFORMED BY: CB [facility] Smczmz1719 [address] RoadDublin [place] [id number] Potassium [Moles/Vol] 4.3 mmol/L Normal 3.5-5.2 [facility] Work Phone: Comment on above: PATIENT NOT FASTINGP ERFORMED BY: CB [facility] Fvgfky0232 [address] RoadDublin [place] [id number] Protein [Mass/Vol] 6.6 g/dL Normal 6.0-8.5 [facility] Work Phone: Comment on above: PATIENT NOT FASTINGP ERFORMED BY: CB [facility] Atmpwg55[address] [facility] HospitalDublin [place] [id number] Sodium [Moles/Vol] 139 mmol/L Normal 134-144 [facility] Work Phone: Comment on above: PATIENT NOT FASTINGP ERFORMED BY: CB [facility] Iipmii57[address] [facility]in [place] [id number] Urea nitrogen [Mass/Vol] 16 mg/dL Normal 6-24 [facility] Work Phone: Comment on above: PATIENT NOT FASTINGP ERFORMED BY: CB [facility] Tmeqdt6165 [address] RoadDublin [place] [id number] Urea nitrogen/Creatini ne [Mass ratio] 14 mg/mg Normal 9-20 [facility] Work Phone: Comment on above: PATIENT NOT FASTINGP ERFORMED BY: CB [facility] Tgzikx4579 [address] [facility] [id number] TSH ([id number])Ordered By: Nicole m Study Director on 07-29-2012 TSH Qn 1.670 {uIU/mL} Normal 0.450-4.500 [facility] Internal Medicine Work Phone: Comment on above: PATIENT NOT FASTINGP ERFORMED BY: CB [facility] Bqraed3535 [address] [facility] [id number] Vital Signs Date Time Vital Sign Value Performing Clinician Facility 08-12-2017 13:0400 BMI (Body Mass Index) 27.29 kg/m2 Dalia Tristan [facility] Internal Medicine Work Phone: 08-12-2017 13:130400 Body Temperature 98.2 [degF] Dalia Tristan [facility] Work Phone: Comment on above: Method: Temporal 08-12-2017 13:13040 Body weight 81.42 kg Dalia Tristan [facility] Internal Medicine Work Phone: 08-12-2017 13:13-0400 BP Diastolic 70 mm[Hg] Dalia Tristan [facility] Internal Medicine Work Phone: Comment on above: Patient Position: Sitting; Cuff Location : Left Arm; Cuff Size: Standard 08-12-2017 13:13-0400 BP Systolic 127 mm[Hg] Dalia Tristan [facility] Internal Medicine Work Phone: Comment on above: Patient Position: Sitting; Cuff Location : Left Arm; Cuff Size: Standard 08-12-2017 13:13-0400 BSA (Body Surface Area) 1.95 m2 Dalia Tristan [facility] Internal Medicine Work Phone: 08-12-2017 13:13-0400 Height 172.72 cm Dalia Tristan [facility] Internal Medicine Work Phone: 08-12-2017 13:13-0400 Pulse (Heart Rate) 72 /min Dalia Tristan [facility] Internal Medicine Work Phone: Comment on above: Pattern: Regular 08-12-2017 13:13-0400 Respiratory Rate 16 /min Dalia Tristan [facility] Internal Medicine Work Phone: Comment on above: Pattern: Unlabored 07-04-2017 07:46-0400 BMI (Body Mass Index) 27.29 kg/m2 Dalia Tristan [facility] Internal Medicine Work Phone: 07-04-2017 07:46-0400 Body weight 81.42 kg Dalia Tristan [facility] Internal Medicine Work Phone: 07-04-2017 07:46-0400 BP Diastolic 84 mm[Hg] Dalia Tristan [facility] Internal Medicine Work Phone: Comment on above: Patient Position: Sitting; Cuff Location : Left Arm; Cuff Size: Large 07-04-2017 07:46-0400 BP Systolic 122 mm[Hg] Dalia Tristan [facility] Internal Medicine Work Phone: Comment on above: Patient Position: Sitting; Cuff Location : Left Arm; Cuff Size: Large 07-04-2017 07:46-0400 BSA (Body Surface Area) 1.95 m2 Dalia Tristan [facility] Internal Medicine Work Phone: 07-04-2017 07:46-0400 Height 172.72 cm Dalia Mchughon [facility] Work Phone: 07-04-2017 07:46-0400 Pulse (Heart Rate) 88 /min Dalia Tristan [facility] Work Phone: Comment on above: Pattern: Regular 07-04-2017 07:46-0400 Pulse Oximetry 98 % Dalia Tristan [facility] Work Phone: Comment on above: Room air 07-04-2017 07:46-0400 Respiratory Rate 18 /min Dalia Tristan [facility] Work Phone: Comment on above: Pattern: Unlabored 08-23-2016 07:37-0400 BMI (Body Mass Index) 27.84 kg/m2 Dalia Tristan [facility] Work Phone: 08-23-2016 07:37-0400 Body weight 83.07 kg Dalia Tristan [facility] Work Phone: 08-23-2016 07:37-0400 BP Diastolic 80 mm[Hg] Dalia Tristan [facility] Work Phone: Comment on above: Patient Position: Sitting; Cuff Location : Left Arm; Cuff Size: Large 08-23-2016 07:37-0400 BP Systolic 122 mm[Hg] Dalia Tristan [facility] Work Phone: Comment on above: Patient Position: Sitting; Cuff Location : Left Arm; Cuff Size: Large 08-23-2016 07:37-0400 BSA (Body Surface Area) 1.97 m2 Dalia Tristan [facility] Work Phone: 08-23-2016 07:37-0400 Height 172.72 cm Dalia Tristan [facility] Work Phone: 08-23-2016 07:37-0400 Pulse (Heart Rate) 82 /min Dalia Hester Internal Medicine Work Phone: Comment on above: Pattern: Regular 08-23-2016 07:37-0400 Pulse Oximetry 97 % Dalia Tristan [facility] Work Phone: Comment on above: Room air 08-23-2016 07:37-0400 Respiratory Rate 18 /min Dalia Hester Internal Medicine Work Phone: Comment on above: Pattern: Unlabored 08-02-2016 08:53-0400 BMI (Body Mass Index) 26.97 kg/m2 Dalia Tristan [facility] Work Phone: 08-02-2016 08:53-0400 Body weight 80.46 kg Dalia Tristan [facility] Internal Medicine Work Phone: 08-02-2016 08:53-0400 BP Diastolic 66 mm[Hg] Dalia Tristan [facility] Work Phone: Comment on above: Patient Position: Sitting; Cuff Location : Left Arm; Cuff Size: Standard 08-02-2016 08:53-0400 BP Systolic 118 mm[Hg] Dalia Tristan [facility] Work Phone: Comment on above: Patient Position: Sitting; Cuff Location : Left Arm; Cuff Size: Standard 08-02-2016 08:53-0400 BSA (Body Surface Area) 1.94 m2 Dalia Tristan [facility] Work Phone: 08-02-2016 08:53-0400 Height 172.72 cm Dalia Tristan [facility] Internal Medicine Work Phone: 08-02-2016 08:53-0400 Pulse (Heart Rate) 73 /min Dalia Tristan [facility] Internal Medicine Work Phone: Comment on above: Pattern: Regular 08-02-2016 08:53-0400 Pulse Oximetry 98 % Dalia Tristan [facility] Internal Medicine Work Phone: Comment on above: Room air 08-02-2016 08:53-0400 Respiratory Rate 18 /min Dalia Hester Internal Medicine Work Phone: Comment on above: Pattern: Unlabored 05-02-2016 07:11-0400 BMI (Body Mass Index) 26.97 kg/m2 Dalia Hester Internal Medicine Work Phone: 05-02-2016 07:11-0400 Body Temperature 97.1 [degF] Dalia Tristan [facility] Work Phone: Comment on above: Method: Temporal 05-02-2016 07:110400 Body weight 80.46 kg Dalia Hester Internal Medicine Work Phone: 05-02-2016 07:11-0400 BP Diastolic 82 mm[Hg] Dalia Tristan [facility] Work Phone: Comment on above: Patient Position: Sitting; Cuff Location : Left Arm; Cuff Size: Large 05-02-2016 07:11-0400 BP Systolic 124 mm[Hg] Dalia Tristan [facility] Work Phone: Comment on above: Patient Position: Sitting; Cuff Location : Left Arm; Cuff Size: Large 05-02-2016 07:11-0400 BSA (Body Surface Area) 1.94 m2 Dalia Tristan [facility] Work Phone: 05-02-2016 07:11-0400 Height 172.72 cm Dalia Tristan [facility] Work Phone: 05-02-2016 07:11-0400 Pulse (Heart Rate) 88 /min Dalia Tristan [facility] Work Phone: Comment on above: Pattern: Regular 05-02-2016 07:11-0400 Pulse Oximetry 95 % Dalia rTistan [facility] Internal Medicine Work Phone: Comment on above: Room air 05-02-2016 07:11-0400 Respiratory Rate 18 /min Dalia Tristan [facility] Internal Medicine Work Phone: Comment on above: Pattern: Unlabored 08-19-2012 14:03-0400 BMI (Body Mass Index) 25.9 kg/m2 Dalia Tristan [facility] Work Phone: 08-19-2012 14:03-0400 Body weight 77.25 kg Dalia Tristan [facility] Internal Medicine Work Phone: 08-19-2012 14:03-0400 BP Diastolic 88 mm[Hg] Dalia Tristan [facility] Work Phone: Comment on above: Patient Position: Sitting; Cuff Location : Left Arm; Cuff Size: Small 08-19-2012 14:03-0400 BP Systolic 138 mm[Hg] Dalia Tristan [facility] Internal Medicine Work Phone: Comment on above: Patient Position: Sitting; Cuff Location : Left Arm; Cuff Size: Small 08-19-2012 14:03-0400 BSA (Body Surface Area) 1.91 m2 Dalia Tristan [facility] Internal Medicine Work Phone: 08-19-2012 14:03-0400 Height 172.72 cm Daila Tristan [facility] Internal Medicine Work Phone: 08-19-2012 14:03-0400 Pulse (Heart Rate) 72 /min Dalia Tristan [facility] Internal Medicine Work Phone: Comment on above: Pattern: Regular 08-19-2012 14:03-0400 Respiratory Rate 20 /min Dalia Tristan [facility] Internal Medicine Work Phone: Comment on above: Pattern: Unlabored 07-29-2012 13:22-0400 BMI (Body Mass Index) 25.62 kg/m2 Dalia Tristan [facility] Internal Medicine Work Phone: 07-29-2012 13:22-0400 Body Temperature 97.8 [degF] Dalia Tristan [facility] Internal Medicine Work Phone: Comment on above: Method: Oral 07-29-2012 13:22-0400 Body weight 76.43 kg Dalia Tristan [facility] Work Phone: 07-29-2012 13:22-0400 BP Diastolic 74 mm[Hg] Dalia Tristan [facility] Work Phone: Comment on above: Patient Position: Sitting; Cuff Location : Left Arm; Cuff Size: Standard 07-29-2012 13:22-0400 BP Systolic 136 mm[Hg] Dalia Tristan [facility] Work Phone: Comment on above: Patient Position: Sitting; Cuff Location : Left Arm; Cuff Size: Standard 07-29-2012 13:22-0400 BSA (Body Surface Area) 1.9 m2 Dalia Tristan [facility] Work Phone: 07-29-2012 13:22-0400 Height 172.72 cm Dalia Tristan [facility] Work Phone: 07-29-2012 13:22-0400 Pulse (Heart Rate) 76 /min Dalia Tristan [facility] Work Phone: Comment on above: Pattern: Regular 07-29-2012 13:22-0400 Respiratory Rate 16 /min Dalia Tristan [facility] Work Phone: Comment on above: Pattern: Unlabored 06-05-2012 07:26-0400 BMI (Body Mass Index) 25.16 kg/m2 Dalia Tristan [facility] Work Phone: 06-05-2012 07:26-0400 Body weight 75.07 kg Dalia Tristan [facility] Work Phone: 06-05-2012 07:26-0400 BP Diastolic 62 mm[Hg] Dalia Tristan [facility] Work Phone: Comment on above: Patient Position: Sitting; Cuff Location : Left Arm; Cuff Size: Standard 06-05-2012 07:26-0400 BP Systolic 122 mm[Hg] Dalia Tristan [facility] Work Phone: Comment on above: Patient Position: Sitting; Cuff Location : Left Arm; Cuff Size: Standard 06-05-2012 07:26-0400 BSA (Body Surface Area) 1.89 m2 Dalia Tristan [facility] Work Phone: 06-05-2012 07:26-0400 Height 172.72 cm Dalia Tristan [facility] Work Phone: 06-05-2012 07:26-0400 Pulse (Heart Rate) 60 /min Dalia Tristan [facility] Work Phone: Comment on above: Pattern: Regular 06-05-2012 07:26-0400 Respiratory Rate 18 /min Dalia Tristan [facility] Work Phone: Comment on above: Pattern: Unlabored Encounters Encounter Date Encounter Type Care Provider Facility Start: 08-21-2022 End: 08-21-2022 ambulatory [facility] Work Phone: Start: 08-21-2022 End: 08-21-2022 [facility] Start: 04-23-2022 End: 04-23-2022 ambulatory Ag Wheeler Facility:[facility] Start: 04-23-2022 End: 04-23-2022 [facility] encounter [facility] Start: 01-11-2021 End: 01-11-2021 Discharged Recurring [facility] Start: 08-26-2019 End: 08-26-2019 Phone Encounter [facility]ia [facility] Start: 12-11-2017 End: 12-11-2017 Phone Encounter Dalia [facility] Start: 08-12-2017 End: 08-12-2017 Office outpatient visit 15 minutes Dalia Tristan [facility] Start: 07-04-2017 End: 07-04-2017 Office outpatient visit 15 minutes Dalia Tristan [facility] Start: 08-23-2016 End: 08-23-2016 Office outpatient visit 15 minutes Dalia Tristan [facility] Start: 08-02-2016 End: 08-02-2016 Office outpatient visit 5 minutes Dalia Tristan [facility] Start: 05-02-2016 End: 05-02-2016 Office outpatient visit 25 minutes Dalia Tristan [facility] Start: 08-19-2012 End: 08-19-2012 Patient encounter procedure Dalia Tristan [facility] Start: 07-29-2012 End: 07-29-2012 Patient encounter procedure Dalia Tristan [facility] Start: 06-05-2012 End: 06-05-2012 Patient encounter procedure Dalia Tristan [facility] Procedures Date Procedure Procedure Detail Performing Clinician Start: 08-21-2022 Radiologic examinati on of knee Start: 04-23-2022 Plain X-ray of tibia and fibula Start: 07-09-2016 End: 07-09-2016 Spleen Comments: See Note; NOTES: [facility] Imaging Services [address] [place] [address] Verdana 4d Spleen MR#: [id number] Acct: [id number] Name: AG WHEELER Rep #: [id number] : 1960 M 56 From: Lenny Barakat MD PCP: Dalia Tristan DO Status: REG CLI Study: Spleen Date of Exam: 07/09/16 Exam# [id number] Ordering Dr: Dalia Tristan DO STUDY: ABDOMINAL ULTRASOUND - LEFT UPPER QUADRANT REASON FOR VISIT: Male, 56 years old. Splenomegaly. TECHNIQUE: Ultrasound evaluation of the left upper quadrant was performed with real-time and static nicole-scale imaging. TECHNICAL QUALITY: Adequate. COMPARISON: None. FINDINGS: SPLEEN : There is evidence of mild splenomegaly. The spleen measures 12 cm x 4.8 cm x 4.9 cm. It is of homogeneous echotexture. Left Kidney: Normal size of the left kidney. The left kidney measures 11.8 cm x 4.6 cm x 4.4 cm. Normal renal cortex. The left cortex measures 1.4 cm. There is no demonstrated renal mass or cyst. There is no left hydronephrosis. US/Spleen IMPRESSION: Mild splenomegaly. Electronically Signed: Lenny Barakat MD at 9:03 EDT Tel [phone], Service support [phone], CC: Dalia Tristna DO Linen Room Worker: Signed Dalia Tristan Work Phone: Start: 05-02-2016 End: 05-02-2016 Ecg routine ecg w/least 12 lds w/i&r [MEASUREMENTS ANALYSIS] Date of Test: 05/02/2016 08:17:01; Heart Rate: 68; RI Interval: 130; QRS: 82; QT Interval: 376; Corrected QT Interval (QTc): 390; P Wave Vanderwagen: 35; QRS Wave Vanderwagen: 14; T Wave Vanderwagen: 40; Blood Pressure: 124/82 [ECG DIAGNOSTIC STATEMENTS] Date of Test: 05/02/2016 08:17:01; Summary: Sinus Rhythm Low voltage -possible pulmonary disease. ABNORMAL Dalia Tristan Work Phone: Comment on above: nsr no acute chg - n o pac noted today or pvc Plan of Treatment Date Care Activity Detail Author Start: 08-26-2019 Lipoprotein blood lyla numbers & subclasses NMR Profile (75691) [facility] Work Phone: Start: 08-26-2019 Glucose [Mass/Vol] GLUCOSE (66400) [facility] Work Phone: Start: 08-26-2019 Assay of prostate specific antigen total PSA (PROSTATE SPECIFIC ANTIGEN) (45295) [facility] Work Phone: Start: 08-12-2017 Procedure Education Eprescribed prescriptions (G8553) [facility] Work Phone: Start: 08-12-2017 Provider Instructions for Treatment Follow up if no improvement or if symptoms worsen [facility] Work Phone: Start: 07-04-2017 Provider Instructions for Treatment [facility] Work Phone: Start: 08-23-2016 Provider Instructions for Treatment [facility] Work Phone: Start: 08-23-2016 Nuclear Ab IF (S) [Titer] YAMIL (ANTINUCLEAR ANTIBODY) (35688) [facility] Work Phone: Start: 08-02-2016 Procedure Education Eprescribed prescriptions (G8553) [facility] Work Phone: Start: 05-02-2016 Provider Instructions for Treatment *Colon Cancer Screening [facility] Work Phone: Start: 08-19-2012 Provider Instructions for Treatment Reviewed Diagnostic Tests [facility] Work Phone: Start: 07-29-2012 Provider Instructions for Treatment [facility] Work Phone: Start: 06-05-2012 Provider Instructions for Treatment [facility] Work Phone: Start: 06-05-2012 Lipid panel LIPID PANEL (10483) [facility] Work Phone: Start: 06-05-2012 Assay of prostate specific antigen total PSA (PROSTATE SPECIFIC ANTIGEN) (V76.44) [facility] Work Phone: Start: 06-05-2012 Comprehensive metabolic panel METABOLIC PANEL, COMPREHENSIVE (14910) [facility] Work Phone: Start: 06-05-2012 Blood count manual cell count each CBC WITH MANUAL DIFF (12565) [facility] Work Phone: Start: 06-05-2012 TSH Qn TSH (18999) [facility] Work Phone: [facility] Work Phone: [facility] Work Phone: [facility] Work Phone: [facility] Work Phone: Immunizations Immunization Date Immunization Notes Care Provider Fa [facility] 02-01-2021 Covid (Pfizer) [facility] Work Phone: 01-11-2021 Covid (Pfizer) [facility] Work Phone: Payers Date Payer Category Payer Self-pay [id number] 2022 Unknown [id number] Unknown [facility] Unknown [id number] Unknown [id number] Social History Date Type Detail Facility Caffeine Use Caffeine Use [facility] Work Phone: Comment on above: occ Exercise History: Exercise History: [facility] Work Phone: Living Situation: Living Situation: [facility] Work Phone: Pets/Animals: Pets/Animals: [facility] Work Phone: Tobacco use: Tobacco use: [facility] Work Phone: Start: 07-26-2014 Tobacco smoking status NHIS Unknown if ever smoked [facility] Work Phone: Start: 1960 Sex Assigned At Male [facility] Work Phone: Goals Date Patient Goal Desired Activity /State Evaluation note Note Date & Type Note Facility Evaluation note No Assessments Information Avail able [facility] Work Phone: Evaluation note Note Date & Type Note Facility Evaluation note No assessment information availa ble [facility] Work Phone: Family History No Family History Records FoundUnknown Family Member Name Dates Details Diabetes Mellitus Comments:Maternal Grandmothe r. Maternal Aunt. Status:Active Heart Disease Comments:Mother. Father. Fir st Degree Relatives. Maternal Grandfather. Maternal Grandmother. Paternal Grandmother. Paternal Grandfather. Paternal Aunt. Status:Active Hypercholesterolemia Comments:Maternal Grandmothe r. Maternal Aunt. Paternal Aunt. Status:Active Hypertension Comments:Father. Maternal Au nt. Status:Active Instructions Name Dates Details How to access health informa tion online Indication:BMI 27.0-27.9,adult Start:12-Aug-2017 Instruction Type:Patient Education How to access health informa tion online - Detail Indication:BMI 27.0-27.9,adult Start:12-Aug-2017 Instruction Type:Patient Education Patient Instructions Indication:BMI 27.0-27.9,adult Start:12-Aug-2017 Instruction Type:Provider Instructions for Treatment How to access health informa tion online Indication:BMI 28.0-28.9,adult Start:04-Jul-2017 Instruction Type:Patient Education How to access health informa tion online - Detail Indication:BMI 28.0-28.9,adult Start:04-Jul-2017 Instruction Type:Patient Education Patient Instructions Indication:BMI 28.0-28.9,adult Start:04-Jul-2017 Instruction Type:Provider Instructions for Treatment Patient Instructions Indication:Splenomegaly Start:23-Aug-2016 Instruction Type:Provider Instructions for Treatment How to access health informa tion online - Detail Indication:Unspecified Diagnosis Start:02-Aug-2016 Instruction Type:Patient Education Patient Instructions Indication:Unspecified Diagnosis Start:02-Aug-2016 Instruction Type:Provider Instructions for Treatment How to access health informa tion online Indication:Encounter for screening for malignant neoplasm of colon (Renamed from Special screening for malignant neoplasms, colon) Start:02-May-2016 Instruction Type:Patient Education How to access health informa tion online - Detail Indication:Encounter for screening for malignant neoplasm of colon (Renamed from Special screening for malignant neoplasms, colon) Start:02-May-2016 Instruction Type:Patient Education Patient Instructions Indication:Encounter for screening for malignant neoplasm of colon (Renamed from Special screening for malignant neoplasms, colon) Start:02-May-2016 Instruction Type:Provider Instructions for Treatment Patient Instructions Indication:Palpitations Start:29-Jul-2012 Instruction Type:Provider Instructions for Treatment Chief Complaint and Reason for Visit Chief Complaint PFIZER VACCINE Chief Complaint contusion Summary Purpose Advance Directives No Advanced Directives Records Found Additional Source Comments Goals (unrecognized section and content) Goals may be documented in a n alternate sectionGoals may be documented in an alternate section (unrecognized sect ion and content) No Status Records Found INFORMATION SOURCE (unrecogn ized section and content) DATE CREATED AUTHOR 08/28/2022 [facility] FOR RECORDS PERTAINING TO PATIENTS WHO ARE OR HAVE BEEN ENROLLED IN A CHEMICAL DEPENDENCY/SUBSTANCEABUSE PROGRAM, SOME INFORMATION MAY BE OMITTED. This clinical summary was aggregated from multiple sources. Caution should be exercised in using it in the provision of clinical care. This summary normalizes information from multiple sources, and as a consequence, information in this document may materially change the coding, format and clinical context of patient data. In addition, data may be omitted in some cases. CLINICAL DECISIONS SHOULD BE BASED ON THE PRIMARY CLINICAL RECORDS. [employer] provides no warranty or guarantee of the accuracy or completeness of information in this document.
--- OUTSIDE RECORDS SUMMARY | 2025-08-12 13:41 | XMS RPT_ITS | CCD ---
Author Organization [facility] Care Team Providers Care Recreation Therapy Teacher Name Role Phone Dalia Tritsan Unavailable Joel Chang Unavailable Luna Payton Unavailable [...] Viewson 08-21 Knee 4 or More Views [facility] Imaging Services [address] [place] [address] Knee 4 or More Views MR#: [id number] Acct: [id number] Name: AG WHEELER Jr. Rep #: [id number] : 1960 M 62 From: Anastasiya ross MD PCP: Dr. Dalia Tristan DO Status: REG CLI Study: Knee 4 or More Views Date of Exam: 08/21/22 Exam# [id number] Ordering Dr: Ag Wheeler D.C. HISTORY: KNEE [...] 8:29 EDT Reading Location ID and State: [address] [place] [address] Tel , Service support , CC: GABRIELLA Wheeler; Dr. Dalia Tristan DO Fence Machine Operator: Signed Normal [facility] Tibia Fibula 2 Viewson 04-23 Tibia Fibula 2 Views [facility] Imaging Services [address] [place] [address] Tibia Fibula 2 Views MR#: [id number] Acct: [id number] Name: AG WHEELER Jr. Rep #: [id number] : 1960 M 61 From: Paxton Lee MD PCP: Dr. Dalia Tristan DO Status: REG CLI Study: Tibia Fibula 2 Views Date of Exam: 04/23/22 Exam# [id number] Ordering Dr: Ag Wheeler D.C. STUDY: X-RAY [...] Dr. Ag Wheeler; Dr. Dalia Tristan DO Fence Machine Operator: Signed Normal [facility] CBC with auto diff ([id number])Or dered By: Microbiology Lab Assistant on 07-04-2017 Basophils (Bld) [#/Vol] 0.1 {x10E3/uL} Normal 0.0-0.2 [facility] Work Phone: Comment on above: PATIENT WAS FASTINGP ERFORMED BY: RetailerSaver.com6370 Opt[employer] Internet SolutionsNovant Health [facility] [id number] Basophils/100 WBC (Bld) 1 % Normal [facility] Work Phone: Comment on above: PATIENT WAS FASTINGP ERFORMED BY: RetailerSaver.com6370 MO[facility]IAKentucky [facility] [id number] Eosinophils (Bld) [#/Vol] 0.4 {x10E3/uL} Normal 0.0-0.4 [facility] Work Phone: Comment on above: PATIENT WAS FASTINGP ERFORMED BY: Segterra (InsideTracker)70 Optimal Internet SolutionsNovant Health [facility] [id number] Eosinophils/100 WBC (Bld) 7 % Normal [facility] Work Phone: Comment on above: PATIENT WAS FASTINGP ERFORMED BY: [facility]ariaTexas [facility] Aipkcc4103 [facility] [id number] Erythrocyte distribution width (RBC) [Ratio] 14.3 % Normal 12.3-15.4 [facility] Work Phone: Comment on above: PATIENT WAS FASTINGP ERFORMED BY: LabMym[facility] Alma6370 [facility] [id number] Hematocrit (Bld) [Volume fraction] 46.2 % Normal 37.5-51.0 [facility] Work Phone: Comment on above: PATIENT WAS FASTINGP ERFORMED BY: [place] 7532170 [facility] [id number] Hemoglobin (Bld) [Mass/Vol] 15.7 g/dL Normal 12.6-17.7 [facility] Work Phone: Comment on above: PATIENT WAS FASTINGP ERFORMED BY: [facility]6370 [facility] [id number] Immature granulocytes (Bld) [#/Vol] 0.0 {x10E3/uL} Normal 0.0-0.1 [facility] Work Phone: Comment on above: PATIENT WAS FASTINGP ERFORMED BY: [facility]6370 [facility] [id number] Immature granulocytes/100 WBC (Bld) 0 % Normal [facility] Work Phone: Comment on above: PATIENT WAS FASTINGP ERFORMED BY: [facility] Alma6[address] [facility] [id number] Lymphocytes (Bld) [#/Vol] 1.2 {x10E3/uL} Normal 0.7-3.1 [facility] Work Phone: Comment on above: PATIENT WAS FASTINGP ERFORMED BY: [facility] Alma6[address] [facility] [id number] Lymphocytes/100 WBC (Bld) 20 % Normal [facility] Work Phone: Comment on above: PATIENT WAS FASTINGP ERFORMED BY: DEBO LabCo Tjwdnr9844 [address] RoadDublin [place] [id number] MCH (RBC) [Entitic mass] 28.8 pg Normal 26.6-33.0 [facility] Work Phone: Comment on above: PATIENT WAS FASTINGP ERFORMED BY: LabCoRehoboth McKinley Christian Health Care ServicesAhhgdd8932 Herrera Roadblin [place] [id number] MCHC (RBC) [Mass/Vol] 34.0 g/dL Normal 31.5-35.7 [facility] Work Phone: Comment on above: PATIENT WAS FASTINGP ERFORMED BY: LabTexas [facility] Sfxhaw3852 Her[address] RoadDublin [place] [id number] MCV (RBC) [Entitic vol] 85 fL Normal 79-97 [facility] Work Phone: Comment on above: PATIENT WAS FASTINGP ERFORMED BY: LabTexas [facility] Johtwr4009 Herrera Roadblin [place] [id number] Monocytes (Bld) [#/Vol] 0.6 {x10E3/uL} Normal 0.1-0.9 [facility] Work Phone: Comment on above: PATIENT WAS FASTINGP ERFORMED BY: LabTexas [facility] Aecdlc4769 Herrera RoadDublin [place] [id number] Monocytes/100 WBC (Bld) 10 % Normal [facility] Work Phone: Comment on above: PATIENT WAS FASTINGP ERFORMED BY: LabTexas [facility] Bisxwt0267 [address] RoadDublin [place] [id number] Neutrophils (Bld) [#/Vol] 3.9 {x10E3/uL} Normal 1.4-7.0 [facility] Work Phone: Comment on above: PATIENT WAS FASTINGP ERFORMED BY: LabCo Wtzakg6713 [address] RoadDublin [place] [id number] Neutrophils/100 WBC (Bld) 62 % Normal [facility] Work Phone: Comment on above: PATIENT WAS FASTINGP ERFORMED BY: DEBO LabCo Tvoeof3332 [address] Roadblin [place] [id number] Platelets (Bld) [#/Vol] 222 {x10E3/uL} Normal 150-379 [facility] Work Phone: Comment on above: PATIENT WAS FASTINGP ERFORMED BY: DEBO LabCo Hduaqe[address] [facility] Hospitalblin [place] [id number] RBC (Bld) [#/Vol] 5.45 {x10E6/uL} Normal 4.14-5.[address] Internal Medicine Work Phone: Comment on above: PATIENT WAS FASTINGP ERFORMED BY: DEBO LabIssa Zsewzp[address] [facility]in [place] [id number] WBC (Bld) [#/Vol] 6.2 {x10E3/uL} Normal 3.4-10.8 [facility] Internal Medicine Work Phone: Comment on above: PATIENT WAS FASTINGP ERFORMED BY: DEBO LabTexas [facility] Datpay7722 [facility] Main Campusin [place] [id number] HGB A1C (01743)Ordered By: S ystem Head Librarian on 07-04-2017 HbA1c (Bld) [Mass fraction] 5.6 % Normal 4.8-5.6 [facility] Work Phone: Comment on above: . Pre-diabetes: 5.7 - 6.4 Diabetes: >6.4 Glycemic control for adults with diabetes: <7.0 PATIENT WAS FASTINGP ERFORMED BY: DEBO LabCo Ukrqli5167 [facility] [id number] LIPID PANEL (84109)Ordered B y: Microbiology Lab Assistant on 07-04-2017 Cholesterol [Mass/Vol] 188 mg/dL Normal 100-199 [facility] Work Phone: Comment on above: PATIENT WAS FASTINGP ERFORMED BY: DEBO LabCo Biyiod[address] [facility] Hospitalblin [place] [id number] Cholesterol in HDL [Mass/Vol] 74 mg/dL Normal [facility] Work Phone: Comment on above: PATIENT WAS FASTINGP ERFORMED BY: DEBO LabRenetta LynnYvvqzx0212 [address] RoadDublin [place] [id number] Cholesterol in LDL [Mass/Vol] 96 mg/dL Normal 0-99 [facility] Work Phone: Comment on above: PATIENT WAS FASTINGP ERFORMED BY: DEBO LabRenetta LynnBsjlzs6435 [address]rera RoadDublin [place] [id number] Cholesterol in LDL/Cholesterol in HDL [Mass ratio] 1.3 {ratio_units} Normal 0.0-3.6 [facility] Work Phone: Comment on above: LDL/HDL Ratio Men Wo men 1/2 Avg.Risk 1.0 1.5 Avg.Risk 3.6 3.2 2X Avg.Risk 6.2 5.0 3X Avg.Risk 8.0 6.1 PATIENT WAS FASTINGP ERFORMED BY: DEBO LabCoiam LynnYskdjy78[address] [facility]in [place] [id number] Cholesterol in VLDL [Mass/Vol] 18 mg/dL Normal 5-40 [facility] Work Phone: Comment on above: PATIENT WAS FASTINGP ERFORMED BY: DEBO LabCoiam LynnEtgvlk2130 [address] Roadblin [place] [id number] Triglyceride [Mass/Vol] 89 mg/dL Normal 0-149 [facility] Work Phone: Comment on above: PATIENT WAS FASTINGP ERFORMED BY: DEBO LabRenetta LynnXsmnia[address] [facility] Hospitalblin [place] [id number] METABOLIC PANEL, COMPREHENSI VE (38804)Ordered By: Microbiology Lab Assistant on 07-04-2017 Albumin [Mass/Vol] 4.0 g/dL Normal 3.5-5.5 [facility] Work Phone: Comment on above: PATIENT WAS FASTINGP ERFORMED BY: DEBO LabCoiam Ibnfge9060 [address] RoadDublin [place] [id number] Albumin/Globulin [Mass ratio] 1.6 {ratio} Normal 1.2-2.2 [facility] Work Phone: Comment on above: PATIENT WAS FASTINGP ERFORMED BY: DEBO [facility] Vpvaho0250 [address] RoadDublin [place] [id number] ALP [Catalytic activity/Vol] 80 [iU]/L Normal 39-117 [facility] Work Phone: Comment on above: PATIENT WAS FASTINGP ERFORMED BY: [facility] Dtuyrj4210 [address] RoadDublin [place] [id number] ALT [Catalytic activity/Vol] 28 [iU]/L Normal 0-44 [facility] Work Phone: Comment on above: PATIENT WAS FASTINGP ERFORMED BY: LabCo Axycok5633 [address] RoadDublin [place] [id number] AST [Catalytic activity/Vol] 27 [iU]/L Normal 0-40 [facility] Work Phone: Comment on above: PATIENT WAS FASTINGP ERFORMED BY: LabTexas [facility] Mccaxb3452 [address] RoadDublin [place] [id number] Bilirubin [Mass/Vol] 1.6 mg/dL Abnormal 0.0-1.2 [facility] Work Phone: Comment on above: PATIENT WAS FASTINGP ERFORMED BY: Lab[facility] Gyjhuu5337 [address] RoadDublin [place] [id number] Calcium [Mass/Vol] 9.4 mg/dL Normal 8.7-10.2 [facility] Work Phone: Comment on above: PATIENT WAS FASTINGP ERFORMED BY: LabTexas [facility] Paedis3559 [address] RoadDublin [place] [id number] Chloride [Moles/Vol] 103 mmol/L Normal 96-106 [facility] Work Phone: Comment on above: PATIENT WAS FASTINGP ERFORMED BY: [facility] Mccgyp2900 [address] RoadDublin [place] [id number] CO2 [Moles/Vol] 25 mmol/L Normal 18-29 [facility] Internal Medicine Work Phone: Comment on above: PATIENT WAS FASTINGP ERFORMED BY: [facility] Qlyoad3278 [address] RoadDublin [place] [id number] Creatinine [Mass/Vol] 1.09 mg/dL Normal 0.76-1.27 [facility] Work Phone: Comment on above: PATIENT WAS FASTINGP ERFORMED BY: [facility] Mljllp0622 [address] RoadDublin [place] [id number] GFR/1.73 sq M predicted among blacks CKD-EPI (S/P/Bld) [Vol rate/Area] 88 mL/min/1.73 Normal [facility] Work Phone: Comment on above: PATIENT WAS FASTINGP ERFORMED BY: CB [facility] Txdacw7823 [address] RoadDublin [place] [id number] GFR/1.73 sq M predicted among non-blacks CKD-EPI (S/P/Bld) [Vol rate/Area] 76 mL/min/1.73 Normal [facility] Work Phone: Comment on above: PATIENT WAS FASTINGP ERFORMED BY: [facility] Mzpgau5481 [address] RoadDublin [place] [id number] Globulin (S) [Mass/Vol] 2.5 g/dL Normal 1.5-4.5 [facility] Work Phone: Comment on above: PATIENT WAS FASTINGP ERFORMED BY: [facility] Juohkx0429 [address] RoadDublin [place] [id number] Glucose [Mass/Vol] 89 mg/dL Normal 65-99 [facility] Work Phone: Comment on above: PATIENT WAS FASTINGP ERFORMED BY: [facility] Klqlft4[address] [facility] Hospitalblin [place] [id number] Potassium [Moles/Vol] 5.1 mmol/L Normal 3.5-5.2 [facility] Work Phone: Comment on above: PATIENT WAS FASTINGP ERFORMED BY: [facility] Tjvbiy8025 [address] RoadDublin [place] [id number] Protein [Mass/Vol] 6.5 g/dL Normal 6.0-8.5 [facility] Work Phone: Comment on above: PATIENT WAS FASTINGP ERFORMED BY: [facility] Ntgxzx5200 [address] RoadDublin [place] [id number] Sodium [Moles/Vol] 143 mmol/L Normal 134-144 [facility] Work Phone: Comment on above: PATIENT WAS FASTINGP ERFORMED BY: Cloudmeter6370 Optimal Internet SolutionsNovant Health [facility] [id number] Urea nitrogen [Mass/Vol] 11 mg/dL Normal 6-24 [facility] Work Phone: Comment on above: PATIENT WAS FASTINGP ERFORMED BY: Cloudmeter6[address] timeplazzaNovant Health Thomasville Medical [facility] [id number] Urea nitrogen/Creatini ne [Mass ratio] 10 mg/mg Normal 9-20 [facility] Work Phone: Comment on above: PATIENT WAS FASTINGP ERFORMED BY: [employer] Wczafl2576 HerreraDelfmemsVidant Pungo Hospital [id number] PSA (PROSTATE SPECIFIC ANTIG EN) (V76.44)Ordered By: Microbiology Lab Assistant on 07-04-2017 Prostate specific Ag [Mass/Vol] 1.5 ng/mL Normal 0.0-4.0 [facility] Internal Medicine Work Phone: Comment on above: Externautics ECLIA methodol ogy. .According to the [place] [employer], Serum PSA shoulddecrease and remain [...] malignant disease. PATIENT WAS FASTINGP ERFORMED BY: Cloudmeter6[address] Metro TelworksVidant Pungo Hospital [id number] TSH ([id number])Ordered By: Syste m Head Librarian on 07-04-2017 TSH Qn 2.820 {uIU/mL} Normal 0.450-4.500 [facility] Internal [facility] Work Phone: Comment on above: PATIENT WAS FASTINGP ERFORMED BY: RetailerSaver.com6370 Docea PowerVidant Pungo Hospital [id number] CBC W/AUTO DIFF WBC (50499)O rdered By: Microbiology Lab Assistant on 05-02-2016 Basophils (Bld) [#/Vol] 0.1 {x10E3/uL} Normal 0.0-0.2 [facility] Work Phone: Comment on above: PATIENT WAS FASTINGP ERFORMED BY: CandelariaWilliam Ville 4982970 [facility] [id number] Information: [id number] Basophils/100 WBC (Bld) 1 % Normal [facility] Work Phone: Comment on above: PATIENT WAS FASTINGP ERFORMED BY: [address] [id number] Information: [id number],[id number] Eosinophils (Bld) [#/Vol] 0.3 {x10E3/uL} Normal 0.0-0.4 [facility] Work Phone: Comment on above: PATIENT WAS FASTINGP ERFORMED BY: [address] [id number] Information: [id number] Eosinophils/100 WBC (Bld) 4 % Normal [facility] Work Phone: Comment on above: PATIENT WAS FASTINGP ERFORMED BY: [address] [id number] Information: [id number],[id number] Erythrocyte distribution width (RBC) [Ratio] 14.3 % Normal 12.3-15.4 [facility] Work Phone: Comment on above: PATIENT WAS FASTINGP ERFORMED BY: [address] [id number] Information: [id number],[id number] Hematocrit (Bld) [Volume fraction] 46.7 % Normal 37.5-51.0 [facility] Work Phone: Comment on above: PATIENT WAS FASTINGP ERFORMED BY: [address] [id number] Information: [id number] Hemoglobin (Bld) [Mass/Vol] 15.7 g/dL Normal 12.6-17.7 [facility] Work Phone: Comment on above: PATIENT WAS FASTINGP ERFORMED BY: [place] 7532170 [facility] [id number] Information: [id number] Immature granulocytes (Bld) [#/Vol] 0.0 {x10E3/uL} Normal 0.0-0.1 [facility] Work Phone: Comment on above: PATIENT WAS FASTINGP ERFORMED BY: [address] [id number] Information: 440326,[id number] Immature granulocytes/100 WBC (Bld) 0 % Normal [facility] Work Phone: Comment on above: PATIENT WAS FASTINGP ERFORMED BY: [address] [id number] Information: 041660,[id number] Lymphocytes (Bld) [#/Vol] 1.1 {x10E3/uL} Normal 0.7-3.1 [facility] Work Phone: Comment on above: PATIENT WAS FASTINGP ERFORMED BY: [address] [id number] Information: 010314,[id number] Lymphocytes/100 WBC (Bld) 19 % Normal [facility] Work Phone: Comment on above: PATIENT WAS FASTINGP ERFORMED BY: [address] [id number] Information: [id number],[id number] MCH (RBC) [Entitic mass] 28.8 pg Normal 26.6-33.0 [facility] Work Phone: Comment on above: PATIENT WAS FASTINGP ERFORMED BY: [address] [id number] Information: [id number],[id number] MCHC (RBC) [Mass/Vol] 33.6 g/dL Normal 31.5-35.7 [facility] Work Phone: Comment on above: PATIENT WAS FASTINGP ERFORMED BY: DEBO CandelariaTexas County Memorial Hospital Fmzjzc5959 [facility] [id number] Information: [id number] MCV (RBC) [Entitic vol] 86 fL Normal 79-97 [facility] Work Phone: Comment on above: PATIENT WAS FASTINGP ERFORMED BY: [address] [id number] Information: [id number] Monocytes (Bld) [#/Vol] 0.6 {x10E3/uL} Normal 0.1-0.9 [facility] Work Phone: Comment on above: PATIENT WAS FASTINGP ERFORMED BY: DEBO [address] [id number] Information: [id number],[id number] Monocytes/100 WBC (Bld) 10 % Normal [facility] Work Phone: Comment on above: PATIENT WAS FASTINGP ERFORMED BY: [facility] Gfyzyq1898 [facility] [id number] Information: 248234,[id number] Neutrophils (Bld) [#/Vol] 4.0 {x10E3/uL} Normal 1.4-7.0 [facility] Work Phone: Comment on above: PATIENT WAS FASTINGP ERFORMED BY: [place] 7532170 [facility] [id number] Information: 140860,Y56145 Neutrophils/100 WBC (Bld) 66 % Normal [facility] Work Phone: Comment on above: PATIENT WAS FASTINGP ERFORMED BY: [facility]6370 [facility] [id number] Information: [id number] Platelets (Bld) [#/Vol] 208 {x10E3/uL} Normal 150-379 [facility] Work Phone: Comment on above: PATIENT WAS FASTINGP ERFORMED BY: DEBO Chely Bhakta6370 [facility] [id number] Information: [id number],[id number] RBC (Bld) [#/Vol] 5.46 {x10E6/uL} Normal 4.14-5.80 [facility] Internal Medicine Work Phone: Comment on above: PATIENT WAS FASTINGP ERFORMED BY: DEBO Chely Bhakta6370 [facility] [id number] Information: 147997,M80053 WBC (Bld) [#/Vol] 6.0 {x10E3/uL} Normal 3.4-10.8 [facility] Internal Medicine Work Phone: Comment on above: PATIENT WAS FASTINGP ERFORMED BY: DEBO Katieiam Tnndjl7105 [facility] [id number] Information: 549283,[id number] HGB A1C (66269)on 05-02-2016 HbA1c (Bld) [Mass fraction] 5.6 % Normal 4.6 - 7.1 [facility] Work Phone: LIPID PANEL (16011)Ordered B y: Microbiology Lab Assistant on 05-02-2016 Cholesterol [Mass/Vol] 170 mg/dL Normal 100-199 [facility] Work Phone: Comment on above: PATIENT WAS FASTINGP ERFORMED BY: DEBO Katieiam LynnOpisyx4748 [facility] [id number] Cholesterol in HDL [Mass/Vol] 68 mg/dL Normal [facility] Work Phone: Comment on above: According to ATP-III Guidelines, HDL-C >59 mg/dL is considered anegative risk factor for CHD. PATIENT WAS FASTINGP ERFORMED BY: DEBO LabCoiam LynnQcbheb5912 [facility] [id number] Cholesterol in LDL [Mass/Vol] 88 mg/dL Normal 0-99 [facility] Work Phone: Comment on above: PATIENT WAS FASTINGP ERFORMED BY: DEBO LabCo Exhied6215 [facility] [id number] Cholesterol in LDL/Cholesterol in HDL [Mass ratio] 1.3 {ratio_units} Normal 0.0-3.6 [facility] Work Phone: Comment on above: LDL/HDL Ratio Men Wo men 1/2 Avg.Risk 1.0 1.5 Avg.Risk 3.6 3.2 2X Avg.Risk 6.2 5.0 3X Avg.Risk 8.0 6.1 PATIENT WAS FASTINGP ERFORMED BY: DEBO [facility] Sarqut7621 [facility] [id number] Cholesterol in VLDL [Mass/Vol] 14 mg/dL Normal 5-40 [facility] Work Phone: Comment on above: PATIENT WAS FASTINGP ERFORMED BY: DEBO LabCoLourdes Medical Center of Burlington CountyAgisgt7420 [facility] [id number] Triglyceride [Mass/Vol] 70 mg/dL Normal 0-149 [facility] Work Phone: Comment on above: PATIENT WAS FASTINGP ERFORMED BY: DEBO [facility] Miklxw3240 [facility] [id number] METABOLIC PANEL, COMPREHENSI VE (27656)Ordered By: Microbiology Lab Assistant on 05-02-2016 Albumin [Mass/Vol] 4.3 g/dL Normal 3.5-5.5 [facility] Work Phone: Comment on above: PATIENT WAS FASTINGP ERFORMED BY: LabCo Xdynuv4906 [facility] [id number] Albumin/Globulin [Mass ratio] 2.0 {ratio} Normal 1.1-2.5 [facility] Work Phone: Comment on above: PATIENT WAS FASTINGP ERFORMED BY: [facility] Pwoqjq6622 [facility] [id number] ALP [Catalytic activity/Vol] 79 [iU]/L Normal 39-117 [facility] Work Phone: Comment on above: PATIENT WAS FASTINGP ERFORMED BY: Lab[facility] Rmuoom6586 [facility] [id number] ALT [Catalytic activity/Vol] 25 [iU]/L Normal 0-44 [facility] Work Phone: Comment on above: PATIENT WAS FASTINGP ERFORMED BY: LabTexas [facility] Ibemkw[address] [facility] Hospitalbl[facility] [place] [id number] AST [Catalytic activity/Vol] 24 [iU]/L Normal 0-40 [facility] Work Phone: Comment on above: PATIENT WAS FASTINGP ERFORMED BY: LabTexas [facility] Dmwhlh2838 Herrera RoadUnc Hospitals Hillsborough Campusin [place] [id number] Bilirubin [Mass/Vol] 2.4 mg/dL Abnormal 0.0-1.2 [facility] Work Phone: Comment on above: PATIENT WAS FASTINGP ERFORMED BY: LabMymichigan Medical Center Alma[address] [facility]in [place] [id number] Calcium [Mass/Vol] 9.2 mg/dL Normal 8.7-10.2 [facility] Work Phone: Comment on above: PATIENT WAS FASTINGP ERFORMED BY: [facility] [facility] [id number] Chloride [Moles/Vol] 100 mmol/L Normal 97-108 [facility] Work Phone: Comment on above: PATIENT WAS FASTINGP ERFORMED BY: LabMymichigan [facility] Center Alma6[address] [facility]in [place] [id number] CO2 [Moles/Vol] 25 mmol/L Normal 18-29 [facility] Internal [facility] Work Phone: Comment on above: PATIENT WAS FASTINGP ERFORMED BY: LabMymich[facility] Alma6[address] [facility]in [place] [id number] Creatinine [Mass/Vol] 1.13 mg/dL Normal 0.76-1.27 [facility] Work Phone: Comment on above: PATIENT WAS FASTINGP ERFORMED BY: [facility]Texas [facility] Sysxgr[address] [facility]in [place] [id number] GFR/1.73 sq M predicted among blacks CKD-EPI (S/P/Bld) [Vol rate/Area] 85 mL/min/1.73 Normal [facility] Work Phone: Comment on above: PATIENT WAS FASTINGP ERFORMED BY: DEBO [facility] Bmpyad7832 [address] RoadDublin [place] [id number] GFR/1.73 sq M predicted among non-blacks CKD-EPI (S/P/Bld) [Vol rate/Area] 74 mL/min/1.73 Normal [facility] Work Phone: Comment on above: PATIENT WAS FASTINGP ERFORMED BY: DEBO [facility] Jjkxmz9813 [address] RoadDublin [place] [id number] Globulin (S) [Mass/Vol] 2.1 g/dL Normal 1.5-4.5 [facility] Work Phone: Comment on above: PATIENT WAS FASTINGP ERFORMED BY: DEBO [facility] Wkldmo8182 [address] RoadDublin [place] [id number] Glucose [Mass/Vol] 87 mg/dL Normal 65-99 [facility] Work Phone: Comment on above: PATIENT WAS FASTINGP ERFORMED BY: [facility] Nvwava1729 [address] RoadDublin [place] [id number] Potassium [Moles/Vol] 4.9 mmol/L Normal 3.5-5.2 [facility] Work Phone: Comment on above: PATIENT WAS FASTINGP ERFORMED BY: [facility] Aurfng8824 [address] RoadDublin [place] [id number] Protein [Mass/Vol] 6.4 g/dL Normal 6.0-8.5 [facility] Work Phone: Comment on above: PATIENT WAS FASTINGP ERFORMED BY: [facility] Dshhpv0642 [address] RoadDublin [place] [id number] Sodium [Moles/Vol] 141 mmol/L Normal 134-144 [facility] Work Phone: Comment on above: PATIENT WAS FASTINGP ERFORMED BY: [facility] Tzdsuq6209 [address] RoadDublin [place] [id number] Urea nitrogen [Mass/Vol] 11 mg/dL Normal 6-24 [facility] Work Phone: Comment on above: PATIENT WAS FASTINGP ERFORMED BY: [id number] Optimal Internet Solutionsin [place] [id number] Urea nitrogen/Creatini ne [Mass ratio] 10 mg/mg Normal 9-20 [facility] Work Phone: Comment on above: PATIENT WAS FASTINGP ERFORMED BY: Cloudmeter6370 [address]reraDelfmemsUnc Hospitals Hillsborough Campusin [place] [id number] PSA (PROSTATE SPECIFIC ANTIG EN) (V76.44)Ordered By: Microbiology Lab Assistant on 05-02-2016 Prostate specific Ag [Mass/Vol] 1.3 ng/mL Normal 0.0-4.0 [facility] Work Phone: Comment on above: [employer] ECLIA methodol ogy. .According to the [place] [employer], Serum PSA shoulddecrease and remain [...] malignant disease. PATIENT WAS FASTINGP ERFORMED BY: [email or web address] Optimal Internet SolutionsNov[facility] [id number] TSH ([id number])Ordered By: [employer] m Head Librarian on 05-02-2016 TSH Qn 2.610 {uIU/mL} Normal 0.450-4.500 [facility] Medicine Work Phone: Comment on above: PATIENT WAS FASTINGP ERFORMED BY: [email or web address].[email or web address] [facility] TelworksVid[facility] Hospital [id number] CBC WITH MANUAL DIFF ([id number]) Ordered By: Microbiology Lab Assistant on 07-29-2012 Basophils (Bld) [#/Vol] 0.0 {x10E3/uL} Normal 0.0-0.2 [facility] Medicine Work Phone: Comment on above: PATIENT NOT FASTINGP ERFORMED BY: [employer]com[address] Metro TelworksVidant P[facility] [id number] Basophils/100 WBC (Bld) 1 % Normal 0-3 [facility] Work Phone: Comment on above: PATIENT NOT FASTINGP ERFORMED BY: CB [facility] Wsnbqw4965 [address] RoadDublin [place] [id number] Eosinophils (Bld) [#/Vol] 0.2 {x10E3/uL} Normal 0.0-0.4 [facility] Work Phone: Comment on above: PATIENT NOT FASTINGP ERFORMED BY: CB [facility] Hsnquk9288 [address] RoadDublin [place] [id number] Eosinophils/100 WBC (Bld) 3 % Normal 0-7 [facility] Work Phone: Comment on above: PATIENT NOT FASTINGP ERFORMED BY: CB [facility] Wnpoyv8768 Her[address] RoadDublin [place] [id number] Erythrocyte distribution width (RBC) [Ratio] 14.2 % Normal 12.3-15.4 [facility] Work Phone: Comment on above: PATIENT NOT FASTINGP ERFORMED BY: CB [facility] Pnbhhb5788 [address] RoadDublin [place] [id number] Hematocrit (Bld) [Volume fraction] 44.3 % Normal 37.5-51.0 [facility] Work Phone: Comment on above: PATIENT NOT FASTINGP ERFORMED BY: CB [facility] Ylvomd1855 [address] RoadDublin [place] [id number] Hemoglobin (Bld) [Mass/Vol] 15.5 g/dL Normal 12.6-17.7 [facility] Work Phone: Comment on above: PATIENT NOT FASTINGP ERFORMED BY: CB [facility] Zbuhyx8654 [address] RoadDublin [place] [id number] Immature granulocytes (Bld) [#/Vol] 0.0 {x10E3/uL} Normal 0.0-0.1 [facility] Work Phone: Comment on above: PATIENT NOT FASTINGP ERFORMED BY: CB [facility] Eqsfkt8548 [address] RoadDublin [place] [id number] Immature granulocytes/100 WBC (Bld) 0 % Normal 0-2 [facility] Work Phone: Comment on above: PATIENT NOT FASTINGP ERFORMED BY: CB [facility] Xigqsi2950 [address] RoadDublin [place] [id number] Lymphocytes (Bld) [#/Vol] 1.1 {x10E3/uL} Normal 0.7-4.5 [facility] Work Phone: Comment on above: PATIENT NOT FASTINGP ERFORMED BY: CB [facility] Pzwzof8657 [address] RoadDublin [place] [id number] Lymphocytes/100 WBC (Bld) 16 % Normal 14-46 [facility] Work Phone: Comment on above: PATIENT NOT FASTINGP ERFORMED BY: CB [facility] Eihnlq5442 Herrera RoadUnc Hospitals Hillsborough Campusin [place] [id number] MCH (RBC) [Entitic mass] 29.5 pg Normal 26.6-33.0 [facility] Work Phone: Comment on above: PATIENT NOT FASTINGP ERFORMED BY: CB [facility] Dqvslu2238 Herrera RoadUnc Hospitals Hillsborough Campusin [place] [id number] MCHC (RBC) [Mass/Vol] 35.0 g/dL Normal 31.5-35.7 [facility] Work Phone: Comment on above: PATIENT NOT FASTINGP ERFORMED BY: CB [facility] Fifbln[address] [facility] HospitalDublin [place] [id number] MCV (RBC) [Entitic vol] 84 fL Normal 79-97 [facility] Work Phone: Comment on above: PATIENT NOT FASTINGP ERFORMED BY: CB [facility] Aorbgr6404 Herrera RoadUnc Hospitals Hills[facility] Campusin [place] [id number] Monocytes (Bld) [#/Vol] 0.5 {x10E3/uL} Normal 0.1-1.0 [facility] Work Phone: Comment on above: PATIENT NOT FASTINGP ERFORMED BY: CB [facility] Jeoxao7323 [address] RoadDublin [place] [id number] Monocytes/100 WBC (Bld) 8 % Normal 4-13 [facility] Work Phone: Comment on above: PATIENT NOT FASTINGP ERFORMED BY: CB [facility] Kkjbkq7582 [address] RoadDublin [place] [id number] Neutrophils (Bld) [#/Vol] 4.7 {x10E3/uL} Normal 1.8-7.8 [facility] Work Phone: Comment on above: PATIENT NOT FASTINGP ERFORMED BY: CB [facility] Ncwgfh9041 [address] RoadDublin [place] [id number] Neutrophils/100 WBC (Bld) 72 % Normal 40-74 [facility] Work Phone: Comment on above: PATIENT NOT FASTINGP ERFORMED BY: CB [facility] Tctxkr6766 [address] RoadDublin [place] [id number] Platelets (Bld) [#/Vol] 237 {x10E3/uL} Normal 140-415 [facility] Work Phone: Comment on above: PATIENT NOT FASTINGP ERFORMED BY: CB [facility] Uvewaq0729 [address] RoadDublin [place] [id number] RBC (Bld) [#/Vol] 5.25 {x10E6/uL} Normal 4.14-5.80 [facility] Internal Medicine Work Phone: Comment on above: PATIENT NOT FASTINGP ERFORMED BY: CB [facility] Mvubvc0118 [address] RoadDublin [place] [id number] WBC (Bld) [#/Vol] 6.6 {x10E3/uL} Normal 4.0-10.5 [facility] Medicine Work Phone: Comment on above: PATIENT NOT FASTINGP ERFORMED BY: CB [facility] Oklkaq8933 [address] RoadDublin [place] [id number] METABOLIC PANEL, COMPREHENSI VE ([id number])Ordered By: Microbiology Lab Assistant on 07-29-2012 Albumin [Mass/Vol] 4.5 g/dL Normal 3.5-5.5 [facility] Work Phone: Comment on above: PATIENT NOT FASTINGP ERFORMED BY: CB [facility] Tacwuz4402 [address] RoadDublin [place] [id number] Albumin/Globulin [Mass ratio] 2.1 {ratio} Normal 1.1-2.5 [facility] Work Phone: Comment on above: PATIENT NOT FASTINGP ERFORMED BY: CB [facility] Msbisf9613 [address] RoadDublin [place] [id number] ALP [Catalytic activity/Vol] 79 [iU]/L Normal 25-150 [facility] Work Phone: Comment on above: PATIENT NOT FASTINGP ERFORMED BY: CB [facility] Rekbgl7544 [address] RoadDublin [place] [id number] ALT [Catalytic activity/Vol] 23 [iU]/L Normal 0-55 [facility] Work Phone: Comment on above: PATIENT NOT FASTINGP ERFORMED BY: CB [facility] Cfafpj9189 [address] RoadDublin [place] [id number] AST [Catalytic activity/Vol] 23 [iU]/L Normal 0-40 [facility] Work Phone: Comment on above: PATIENT NOT FASTINGP ERFORMED BY: CB [facility] Msqmrf8595 [address] RoadDublin [place] [id number] Bilirubin [Mass/Vol] 1.5 mg/dL Abnormal 0.0-1.2 [facility] Work Phone: Comment on above: PATIENT NOT FASTINGP ERFORMED BY: CB [facility] Wukpat1306 [address] RoadDublin [place] [id number] Calcium [Mass/Vol] 9.5 mg/dL Normal 8.7-10.2 [facility] Work Phone: Comment on above: PATIENT NOT FASTINGP ERFORMED BY: CB [facility] Nbgtjp2265 [address] RoadDublin [place] [id number] Chloride [Moles/Vol] 100 mmol/L Normal 97-108 [facility] Work Phone: Comment on above: PATIENT NOT FASTINGP ERFORMED BY: CB [facility] Xhcjha0299 [address] RoadDublin [place] [id number] CO2 [Moles/Vol] 24 mmol/L Normal 20-32 Com[facility] Work Phone: Comment on above: PATIENT NOT FASTINGP ERFORMED BY: CB [facility] Spvxuh1196 [address] RoadDublin [place] [id number] Creatinine [Mass/Vol] 1.11 mg/dL Normal 0.76-1.27 [facility] Work Phone: Comment on above: PATIENT NOT FASTINGP ERFORMED BY: CB [facility] Imbgud4829 [address] RoadDublin [place] [id number] GFR/1.73 sq M predicted among blacks CKD-EPI (S/P/Bld) [Vol rate/Area] 89 mL/min/1.73 Normal [facility] Work Phone: Comment on above: PATIENT NOT FASTINGP ERFORMED BY: CB [facility] Pyvuzq6559 [address] RoadDublin [place] [id number] GFR/1.73 sq M predicted among non-blacks CKD-EPI (S/P/Bld) [Vol rate/Area] 77 mL/min/1.73 Normal [facility] Work Phone: Comment on above: PATIENT NOT FASTINGP ERFORMED BY: CB [facility] Xgmpxo1701 [address] RoadDublin [place] [id number] Globulin (S) [Mass/Vol] 2.1 g/dL Normal 1.5-4.5 [facility] Work Phone: Comment on above: PATIENT NOT FASTINGP ERFORMED BY: CB [facility] Efmydb1773 [address]re[address] RoadDublin [place] [id number] Glucose [Mass/Vol] 85 mg/dL Normal 65-99 [facility] Work Phone: Comment on above: PATIENT NOT FASTINGP ERFORMED BY: CB [facility] Duffcy9201 [address] RoadDublin [place] [id number] Potassium [Moles/Vol] 4.3 mmol/L Normal 3.5-5.2 [facility] Work Phone: Comment on above: PATIENT NOT FASTINGP ERFORMED BY: CB [facility] Toyygs3878 [address] RoadDublin [place] [id number] Protein [Mass/Vol] 6.6 g/dL Normal 6.0-8.5 [facility] Work Phone: Comment on above: PATIENT NOT FASTINGP ERFORMED BY: CB [facility] Etsaqs[address] [facility] HospitalD[facility] [place] [id number] Sodium [Moles/Vol] 139 mmol/L Normal 134-144 [facility] Work Phone: Comment on above: PATIENT NOT FASTINGP ERFORMED BY: CB [facility] Mcxmzk[address] [facility]in [place] [id number] Urea nitrogen [Mass/Vol] 16 mg/dL Normal 6-24 [facility] Work Phone: Comment on above: PATIENT NOT FASTINGP ERFORMED BY: CB [facility] Jftzcq3593 [address] RoadDublin [place] [id number] Urea nitrogen/Creatini ne [Mass ratio] 14 mg/mg Normal 9-20 [facility] Work Phone: Comment on above: PATIENT NOT FASTINGP ERFORMED BY: CB [facility] Aribfi[address] [facility] [id number] TSH ([id number])Ordered By: Nicole m Head Librarian on 07-29-2012 TSH Qn 1.670 {uIU/mL} Normal 0.450-4.500 [facility] Internal Medicine Work Phone: Comment on above: PATIENT NOT FASTINGP ERFORMED BY: CB [facility] Ugkmez[address] [facility] [id number] Vital Signs Date Time Vital Sign Value Performing Clinician Facility 08-12-2017 13:0400 BMI (Body Mass Index) 27.29 kg/m2 Dalia Tristan [facility] Internal Medicine Work Phone: 08-12-2017 13:130400 Body Temperature 98.2 [degF] Dalia Tristan [facility] Work Phone: Comment on above: Method: Temporal 08-12-2017 13:13040 Body weight 81.42 kg Dalia Tristan [facility] Work Phone: 08-12-2017 13:13-0400 BP Diastolic 70 mm[Hg] Dalia Tristan [facility] Work Phone: Comment on above: Patient Position: Sitting; Cuff Location : Left Arm; Cuff Size: Standard 08-12-2017 13:13-0400 BP Systolic 127 mm[Hg] Dalia Tristan [facility] Work Phone: Comment on above: Patient Position: Sitting; Cuff Location : Left Arm; Cuff Size: Standard 08-12-2017 13:13-0400 BSA (Body Surface Area) 1.95 m2 Dalia Tristan [facility] Work Phone: 08-12-2017 13:13-0400 Height 172.72 cm Dalia Tristan [facility] Work Phone: 08-12-2017 13:13-0400 Pulse (Heart Rate) 72 /min Dalia Tristan [facility] Work Phone: Comment on above: Pattern: Regular 08-12-2017 13:13-0400 Respiratory Rate 16 /min Dalia Tristan [facility] Medicine Work Phone: Comment on above: Pattern: Unlabored 07-04-2017 07:46-0400 BMI (Body Mass Index) 27.29 kg/m2 Dalia Tristan [facility] Work Phone: 07-04-2017 07:46-0400 Body weight 81.42 kg Dalia Tristan [facility] Work Phone: 07-04-2017 07:46-0400 BP Diastolic 84 mm[Hg] Dalia Tristan [facility] Work Phone: Comment on above: Patient Position: Sitting; Cuff Location : Left Arm; Cuff Size: Large 07-04-2017 07:46-0400 BP Systolic 122 mm[Hg] Dalia Tristan [facility] Internal [facility] Work Phone: Comment on above: Patient Position: Sitting; Cuff Location : Left Arm; Cuff Size: Large 07-04-2017 07:46-0400 BSA (Body Surface Area) 1.95 m2 Dalia Tristan [facility] Work Phone: 07-04-2017 07:46-0400 Height [...] 08:53-0400 Body weight 80.46 kg Dalia Tristan [facility] Work Phone: 08-02-2016 08:53-0400 BP [...] 08-02-2016 08:53-0400 Height 172.72 cm Dalia Tristan [facility] Work Phone: 08-02-2016 08:53-0400 Pulse (Heart Rate) 73 /min Dalia Tristan [facility] Internal Medicine Work Phone: Comment on above: Pattern: Regular 08-02-2016 08:53-0400 Pulse Oximetry 98 % Dalia Tristan [facility] Internal Medicine Work Phone: Comment on above: Room air 08-02-2016 08:53-0400 Respiratory Rate 18 /min Dalia Hester [facility] Work Phone: Comment on above: Pattern: Unlabored 05-02-2016 07:11-0400 BMI (Body Mass Index) 26.97 kg/m2 aDlia Hester [facility] Work Phone: 05-02-2016 07:11-0400 [...] 05-02-2016 07:11-0400 Pulse Oximetry 95 % Dalia Tristan [facility] Internal Medicine Work Phone: Comment on above: Room air 05-02-2016 07:11-0400 Respiratory Rate 18 /min Dalia Tristan [facility] Internal Medicine Work Phone: Comment on above: Pattern: Unlabored 08-19-2012 14:03-0400 BMI (Body Mass Index) 25.9 kg/m2 Dalia Tristan [facility] Work Phone: 08-19-2012 14:03-0400 Body weight 77.25 kg Dalia Tristan [facility] Medicine Work Phone: 08-19-2012 14:03-0400 BP Diastolic 88 mm[Hg] Dalia Tristan [facility] Work Phone: Comment on above: Patient Position: Sitting; Cuff Location : Left Arm; Cuff Size: Small 08-19-2012 14:03-0400 BP Systolic 138 mm[Hg] Dalia Tristan [facility] Internal Medicine Work Phone: Comment on above: Patient Position: Sitting; Cuff Location : Left Arm; Cuff Size: Small 08-19-2012 14:03-0400 BSA (Body Surface Area) 1.91 m2 Dalia Tristan [facility] Medicine Work Phone: 08-19-2012 14:03-0400 Height 172.72 cm Dalia Tristan [facility] Work Phone: 08-19-2012 14:03-0400 Pulse (Heart Rate) 72 /min Dalia Tristan [facility] Medicine Work Phone: Comment on above: Pattern: Regular 08-19-2012 14:03-0400 Respiratory Rate 20 /min Dalia Tristan [facility] Internal Medicine Work Phone: Comment on above: Pattern: Unlabored 07-29-2012 13:22-0400 BMI (Body Mass Index) 25.62 kg/m2 Dalia Tristan [facility] Medicine Work Phone: 07-29-2012 13:22-0400 Body Temperature 97.8 [degF] Dalia Tristan [facility] Internal Medicine Work Phone: Comment on above: Method: Oral 07-29-2012 13:22-0400 Body weight 76.43 kg Dalia Tristan [facility] Medicine Work Phone: 07-29-2012 13:22-0400 BP Diastolic 74 mm[Hg] Dalia Tristan [facility] Internal Medicine Work Phone: Comment on above: Patient Position: Sitting; Cuff Location : Left Arm; Cuff Size: Standard 07-29-2012 13:22-0400 BP Systolic 136 mm[Hg] Dalia Tristan [facility] Internal Medicine Work Phone: Comment on above: Patient Position: Sitting; Cuff Location : Left Arm; Cuff Size: Standard 07-29-2012 13:22-0400 BSA (Body Surface Area) 1.9 m2 Dalia Tristan [facility] Internal Medicine Work Phone: 07-29-2012 13:22-0400 Height 172.72 cm Dalia Tristan [facility] Work Phone: 07-29-2012 13:22-0400 Pulse (Heart Rate) 76 /min Dalia Tristan [facility] Medicine Work Phone: Comment on above: Pattern: Regular 07-29-2012 13:22-0400 Respiratory Rate 16 /min Dalia Tristan [facility] Internal Medicine Work Phone: Comment on above: Pattern: Unlabored 06-05-2012 07:26-0400 BMI (Body Mass Index) 25.16 kg/m2 Dalia Tristan [facility] Work Phone: 06-05-2012 07:26-0400 Body weight 75.07 kg Dalia Tristan [facility] Work Phone: 06-05-2012 07:26-0400 BP Diastolic 62 mm[Hg] Dalia Tristan [facility] Work Phone: Comment on above: Patient Position: Sitting; Cuff Location : Left Arm; Cuff Size: Standard 06-05-2012 07:26-0400 BP Systolic 122 mm[Hg] Dalia Tristan [facility] Work Phone: Comment on above: Patient Position: Sitting; Cuff Location : Left Arm; Cuff Size: Standard 06-05-2012 07:26-0400 BSA (Body Surface Area) 1.89 m2 Dalia Tristan [facility] Medicine Work Phone: 06-05-2012 07:26-0400 Height 172.72 cm Dalia Tristan [facility] Work Phone: 06-05-2012 07:26-0400 Pulse (Heart Rate) 60 /min Dalia Tristan [facility] Work Phone: Comment on above: Pattern: Regular 06-05-2012 07:26-0400 Respiratory Rate 18 /min Dalia Tristan [facility] Work Phone: Comment on above: Pattern: Unlabored Encounters Encounter Date Encounter Type Care Provider Facility Start: 08-21-2022 End: 08-21-2022 ambulatory [facility] Work Phone: Start: 08-21-2022 End: 08-21-2022 [facility] Start: 04-23-2022 End: 04-23-2022 ambulatory Ag Wheeler Facility:[facility] Start: 04-23-2022 End: 04-23-2022 [facility] Start: 01-11-2021 End: 01-11-2021 Discharged Recurring [facility] Start: 08-26-2019 End: 08-26-2019 Phone Encounter [facility] Start: 12-11-2017 End: 12-11-2017 Phone Encounter [facility] Start: 08-12-2017 End: 08-12-2017 Office [...] Office outpatient visit 25 minutes Dalia Tristan [facility] Start: 08-19-2012 End: 08-19-2012 Patient [...] End: 07-09-2016 Spleen Comments: See Note; NOTES: [facility] Imaging Services [address] [place] [address] Verdana 4d Spleen MR#: [id number] Acct: [id number] Name: AG WHEELER Rep #: [id number] : 1960 M 56 From: Lenny Barakat MD PCP: Dalia Tristan DO Status: REG CLI Study: Spleen Date of Exam: 07/09/16 Exam# [id number] Ordering Dr: Dalia Tristan DO STUDY: ABDOMINAL [...] Lenny Barakat MD at 9:03 EDT Tel [phone], Service support [phone], CC: Dalia Tristan DO Fence Machine Operator: Signed Dalia Tristan Work Phone: Start: 05-02-2016 End: 05-02-2016 Ecg routine ecg w/least 12 lds w/i&r [MEASUREMENTS ANALYSIS] Date of Test: 05/02/2016 08:17:01; Heart Rate: 68; LA Interval: 130; QRS: 82; QT Interval: 376; Corrected QT Interval (QTc): 390; P Wave Bentley: 35; QRS Wave Bentley: 14; T Wave Bentley: 40; Blood Pressure: 124/82 [ECG DIAGNOSTIC STATEMENTS] Date of Test: 05/02/2016 08:17:01; Summary: Sinus Rhythm Low voltage -possible pulmonary disease. ABNORMAL Dalia Tristan Work Phone: Comment on above: nsr no acute chg - n o pac noted today or pvc Plan of Treatment Date Care Activity Detail Author Start: 08-26-2019 Lipoprotein blood lyla numbers & subclasses NMR Profile (24366) [facility] Work Phone: Start: 08-26-2019 Glucose [Mass/Vol] GLUCOSE (59064) [facility] Work Phone: Start: 08-26-2019 Assay of prostate specific antigen total PSA (PROSTATE SPECIFIC ANTIGEN) (11771) [facility] Work Phone: Start: 08-12-2017 [...] Ab IF (S) [Titer] YAMIL (ANTINUCLEAR ANTIBODY) (51991) [facility] Work Phone: Start: 08-02-2016 [...] Phone: Start: 06-05-2012 Lipid panel LIPID PANEL (15239) [facility] Work Phone: Start: 06-05-2012 Assay of prostate specific antigen total PSA (PROSTATE SPECIFIC ANTIGEN) (V76.44) [facility] Work Phone: Start: 06-05-2012 Comprehensive metabolic panel METABOLIC PANEL, COMPREHENSIVE (99906) [facility] Work Phone: Start: 06-05-2012 Blood count manual cell count each CBC WITH MANUAL DIFF (45510) [facility] Work Phone: Start: 06-05-2012 TSH Qn TSH (61119) [facility] Work Phone: [facility] Work Phone: [facility] Work Phone: [facility] Work Phone: [facility] Work Phone: Immunizations Immunization Date Immunization Notes Care Provider Fa [facility] 02-01-2021 Covid (Pfizer) [facility] Work Phone: 01-11-2021 Covid (Pfizer) [facility] Work Phone: Payers Date Payer Category Payer Self-pay [id number] 2022 Unknown [id number] Unknown [facility] Unknown [id number] Unknown [id number] Social History Date Type Detail Facility Caffeine [...] smoking status NHIS Unknown if ever smoked [facility] Work Phone: Start: 1960 Sex Assigned At Male [facility] Work Phone: Goals Date Patient Goal Desired Activity /State Evaluation note Note Date & Type Note Facility Evaluation note No Assessments Information Avail able [facility] Work Phone: Evaluation note Note Date & Type Note Facility Evaluation note No assessment information availa ble [facility] Work Phone: Family History No Family [...] section and content) DATE CREATED AUTHOR 08/28/2022 [facility] FOR RECORDS PERTAINING TO PATIENTS WHO ARE [...] BE BASED ON THE PRIMARY CLINICAL RECORDS. [employer] provides no warranty or guarantee of the accuracy or completeness of information in this document.
[2025-08-12 15:28] LABS: Cholesterol 186 mg/dL (<=200); Low Density Lipoprotein Calc. 98 mg/dL; Triglycerides 61 mg/dL; Very Low Density Lipoprotein 12 mg/dL (5-40); cholesterol:hdl ratio screen 2.43
[2025-08-16 12:08] LABS: PSA, Total 2.9 ng/mL (0.0-4.0)
== END | disposition home or self-care (01) ==
LOC: MTLAB 13:19
PROVIDERS: PCP Internal Medicine; Referring Provider Internal Medicine; Visit Provider Internal Medicine
DX: Z12.5 Encounter for screening for malignant neoplasm of prostate (principal); Z13.220 Encounter for screening for lipoid disorders; Z86.39 Personal history of other endocrine, nutritional and metabolic disease
CPT/HCPCS: 36415; 80061; 83036; 84153